=== PATIENT | female | born 1975 | race Caucasian/White ===

== ENCOUNTER 2021-05-06 11:55 | Outpatient (REF) | payer MEDICAID, SELFPAY | END 2021-05-06 11:56 | disposition home or self-care (01) | LOC: HO.LAB 11:55 | PROVIDERS: Visit Provider Internal Medicine | DX: Z20.822 Contact with and (suspected) exposure to COVID-19 (principal) | CPT/HCPCS: C9803; U0003; U0005 ==

== ENCOUNTER 2021-05-13 09:13 | Outpatient (REF) | payer MEDICAID, SELFPAY ==
[2021-05-13 09:53] LABS: COVID-19 Test Negative (Negative)
== END 2021-05-13 09:14 | disposition home or self-care (01) ==
LOC: HO.LAB 09:13
PROVIDERS: Visit Provider Internal Medicine
DX: Z20.822 Contact with and (suspected) exposure to COVID-19 (principal)
CPT/HCPCS: 36415; 87635; C9803

== ENCOUNTER 2021-06-05 12:15 | Outpatient (REF) | payer MEDICAID, SELFPAY | END 2021-06-05 12:16 | disposition home or self-care (01) | LOC: HO.LAB 12:15 | PROVIDERS: Visit Provider Internal Medicine | DX: Z20.822 Contact with and (suspected) exposure to COVID-19 (principal) | CPT/HCPCS: C9803; U0003; U0005 ==

== ENCOUNTER → 2022-04-16 15:30 | Outpatient (BNVA) | payer MEDICAID, SELFPAY | PROVIDERS: PCP Internal Medicine; Visit Provider Surgery | DX: K64.4 Residual hemorrhoidal skin tags (principal); K64.8 Other hemorrhoids | CPT/HCPCS: 46600; 99202 ==

== ENCOUNTER 2022-07-02 11:36 | Emergency (ER) | payer MEDICAID, SELFPAY ==
--- NOTE | ~2022-07-02 | CT_ITS ---
EXAMINATION: CT HEAD WITHOUT CONTRAST CLINICAL INFORMATION: Dizziness, headaches and nausea COMPARISON: None TECHNIQUE: Contiguous axial imaging was performed from the skull base to vertex without intravenous administration of contrast. This CT examination was performed using dose optimization techniques as appropriate, variously including the following: *Automated exposure control *Adjustment of mA and/or kV according to patient size (this includes techniques or standardized protocols for targeted exams where dose is matched to indication/reason for exam; i.e. extremities or head) *Use of iterative reconstruction technique DLP: 638 mGy-cm FINDINGS: There is no acute intra-axial, extra-axial bleed, masses or midline shift. There is no acute infarction in evolution. There is maintained lozano to white matter differentiation. The lateral ventricles are symmetrical and normal. Bone windows reveal no calvarial abnormality. There is no scalp soft tissue abnormality. Bilateral paranasal sinuses and mastoid air cells are well-aerated. CT/CT head/brain wo IV con IMPRESSION: No acute intracranial process seen.
[2022-07-02 11:49] VITALS: BP 103/60; PULSE 75; RESP 16; TEMP 36.4; O2SAT 100; BMI 23.3
--- NOTE | 2022-07-02 11:57 | ED_ITS ---
HPI - General Adult General Chief complaint: Head Injury Stated complaint: possible concussion Time Seen by Provider: 07/02/22 11:53 Source: patient Mode of arrival: ambulatory Limitations: no limitations History of Present Illness HPI narrative: The patient is a 46-year-old female with a PMH prolapsed hemorrhoids, migraines, depression, anxiety, presenting with a complaint of nausea and headache. she reports about 3 weeks ago she hit the right side of her head on a car visor. the patient reports she has been feeling these symptoms for about 2.5 to 3 weeks. she also endorses a 5 lb weight loss, generalized fatigue, generalized malaise, generalized myalgia, tinnitus of the right ear, blurred/ glossy vision, decreased food intake, insomnia nausea episode diarrhea yesterday, photophobia and it is bilateral swollen calfs. patient reports her symptoms have worsened over the past few days, chills and her symptoms worsen at night. Of note the patient is not on any blood thinners. MD complaint: headache and nausea Onset (ago): week(s) (3) Location: head Radiation: non-radiation Severity: moderate Pain Consistency: intermittent Relieving factors: none Exacerbating factors: other (bright lights ) Associated symptoms: fever/chills (chills) and loss of appetite Related Data Home Medications Medication Instructions Recorded Confirmed ascorbic acid (vitamin C) 500 mg 500 mg PO Q OTHER DAY 04/16/22 04/16/22 tablet (Vitamin C) docusate sodium 100 mg capsule 100 mg PO BID 04/16/22 04/16/22 ergocalciferol (vitamin D2) 1,250 1,250 mcg PO QWEEK 04/16/22 04/16/22 mcg (50,000 unit) capsule ferrous gluconate 324 mg (38 mg 324 mg PO Q OTHER DAY 04/16/22 04/16/22 iron) tablet hydroxyzine HCl 25 mg tablet 25 mg PO BID PRN 04/16/22 04/16/22 mirtazapine 15 mg tablet 15 mg PO BEDTIME 04/16/22 04/16/22 Previous Rx's Medication Instructions Recorded ondansetron 4 mg disintegrating 4 mg PO Q8H PRN nausea and 07/02/22 tablet vomiting #10 tabs Allergies Allergy/AdvReac Type Severity Reaction Status Date / Time gluten [GLUTEN] Allergy Unknown UNKNOWN Verified 07/02/22 11:49 wheat [WHEAT] AdvReac Unknown VOMITING Verified 07/02/22 11:49 Wheat Dextrin Allergy Unknown vomiting Uncoded 04/16/22 15:43 wheat AdvReac Unknown vomiting Uncoded 04/16/22 15:43 Review of Systems Review of Systems: Constitutional: No Fever, No Chills, + 5lb weight loss ENT/Mouth: No sore throat, No Rhinorrhea, No Swallowing Difficulty, + tinnitus of right ear Eyes: No Eye Pain, No Swelling, No Redness, + Vision changes Cardiovascular: No Chest Pain, No SOB, No Orthopnea, No Edema, + intermittent chest pressure. Respiratory: No Cough, No Sputum, No Wheezing, No dyspnea Gastrointestinal: + Nausea, No Vomiting, + Diarrhea, No abdominal Pain, No Hematochezia, No Melena Genitourinary: No Dysuria, No Urinary Frequency, No Hematuria Musculoskeletal: No joint pain, + Myalgias, + bilateral calf swelling, Skin: No Skin Lesions, No rash Neuro: No Weakness, No Numbness, + Dizziness, + Headache Heme/Lymph: No Bruising, No Lymphadenopathy Yes all other systems are reviewed and are negative [facility] Past Medical History Medical History (Updated 07/02/22 @ 14:11 by SHER Worthington) Prolapsed hemorrhoids Surgical History No pertinent past surgical history Family History Family History Brother Throat cancer Maternal Grandfather Cancer Social History Social History Alcohol intake: current Alcohol intake frequency: holidays/special occasions only Patient Tobacco Use Status: Current someday Tobacco user Advance Directives: No Advance Directives Information Provided: Yes Physical Exam ED Vital Signs: Vital Signs - 24 hr 07/02/22 11:49 07/02/22 13:07 Temperature 97.6 F 98.5 F Pulse Rate 75 72 Respiratory Rate 16 18 Blood Pressure 103/60 94/60 Pulse Oximetry 100 99 Oxygen Delivery Method Room Air Room Air BMI result Body Mass Index 23.3 Appearance: Alert. Oriented X3. No acute distress. Eyes: Pupils equal, round and reactive to light. ENT: Pharynx normal. moist mucous membranes. TM visualized landmarks noted no erythema no signs of infection Neck: Normal inspection. Neck supple. CVS: Normal heart rate and rhythm. Pulses normal. Respiratory: No respiratory distress. Breath sounds normal. Abdomen: Soft and nontender. Skin: Skin warm and dry. Normal skin color. Normal skin turgor. No rashes. Extremities: No lower extremity edema. no calf tenderness to palpation, - homans sign, no palpable cord. Neuro: Oriented X 3. No motor deficit. No sensory deficit. -heel to young, - finger to nose, - weakness, Normal cerebral alternating movements. - [place] test. No pronator drift. Steady gait. CN II-VII intact. Course Course Course Narrative: 46-year-old female with a PMH prolapsed hemorrhoids, migraines, depression, anxiety, presenting with a complaint of nausea and headache, With multiple comp laints. Patient reports headache vision changes tinnitus of the right ear chest pressure insomnia anorexia, nausea, 1 episode of diarrhea yesterday, photophobia. symptoms worsened at night. patient reports 3 weeks ago she hit her head on a car visor. Doubt acute traumatic injury Physical exam: unremarkable - neuro exam intact, no sinus infection, TM and landmarks visualized. Plan: - Labs: CBC, BMP, ESR, CPK, CRP, liver panel - CT of head to rule out stroke - Lyme, influenza, COVID - EKG Reevaluation(s) Reevaluation #1: Labs unremarkable. CT head is normal. Patient is under lot of stress. She is not sleeping well. She would like a work note for the next 2 days. She will follow-up with her primary care doctor. At this time she is stable for discharge home with rest and follow-up with her PCP. Patient agrees with plan. Medical Decision Making Lab Data Result diagrams: 07/02/22 12:40 07/02/22 12:40 Labs: Lab Results 07/02/22 07/02/22 07/02/22 Range/Units 12:40 12:40 12:40 WBC 6.4 (4.8-10.8) X10*3/uL RBC 3.71 L (4.20-5.50) X10*6/uL Hgb 11.7 L (12.0-16.0) g/dl Hct 35.0 L (37.0-47.0) % MCV 94.3 (80.0-98.0) fL MCH 31.5 (27.0-33.0) pg MCHC 33.4 (31.0-35.0) g/dl RDW 13.2 (11.0-16.0) % Plt Count 238 (160-400) X10*3/uL MPV 10.1 (9.4-12.3) fL Immature Gran % (Auto) 0.3 (0.0-0.4) % Neut % (Auto) 52.0 (45-73) % Lymph % (Auto) 39.2 (20-40) % [place] % (Auto) 7.6 (2-11) % Eos % (Auto) 0.3 (0-4) % Baso % (Auto) 0.6 (0-2) % Lymph # (Auto) 2.5 (1.2-4.9) X10*3/uL [place] # (Auto) 0.5 (0.1-1.2) X10*3/uL Eos # (Auto) 0.0 (0.0-0.4) X10*3/uL Baso # (Auto) 0.0 (0.0-0.2) X10*3/uL Abs Immat Gran (auto) 0.02 (0.00-0.03) X10*3/uL Absolute Neuts (auto) 3.3 (2.0-8.3) x10*3/uL Absolute Nucleated RBC 0.000 (0.0-0.012) X10*3/uL Nucleated RBC % (auto) 0.0 (0.0-0.2) /100WBC ESR 7 (0-20) MM/HR Sodium 142 (135-145) mmol/L Potassium 3.7 (3.3-5.1) mmol/L Chloride 109 H (96-108) mmol/L Carbon Dioxide 23 (22-29) mmol/L Anion Gap 14 (12-20) BUN 12 (9-16) mg/dL Creatinine 0.82 (0.5-1.4) mg/dL Estim Creat Clear Calc 72.4 Estimated GFR > 60 Random Glucose 93 (60-115) mg/dL Calcium 8.5 (8.4-10.2) mg/dL Magnesium 2.2 (1.6-2.6) mg/dL Total Bilirubin 0.2 (0.0-1.0) mg/dL Direct Bilirubin < 0.2 (0.0-0.5) mg/dL AST 12 (5-31) U/L ALT < 6 (0-31) U/L Alkaline Phosphatase 56 (39-117) U/L Total Creatine Kinase 76 (26-140) U/L C-Reactive Protein 0.06 (< or = 0.50) mg/dL Total Protein 6.4 L (6.5-8.0) g/dL Albumin 3.9 (3.5-5.0) g/dL COVID-19 (COLLIN) (Negative) COVID-19 Clin Com Influenza Type A (YIN) (Negative) Influenza Type B (YIN) (Negative) Influenza A & B Note 07/02/22 07/02/22 Range/Units 12:40 12:40 WBC (4.8-10.8) X10*3/uL RBC (4.20-5.50) X10*6/uL Hgb (12.0-16.0) g/dl Hct (37.0-47.0) % MCV (80.0-98.0) fL MCH (27.0-33.0) pg MCHC (31.0-35.0) g/dl RDW (11.0-16.0) % Plt Count (160-400) X10*3/uL MPV (9.4-12.3) fL Immature Gran % (Auto) (0.0-0.4) % Neut % (Auto) (45-73) % Lymph % (Auto) (20-40) % [place] % (Auto) (2-11) % Eos % (Auto) (0-4) % Baso % (Auto) (0-2) % Lymph # (Auto) (1.2-4.9) X10*3/uL [place] # (Auto) (0.1-1.2) X10*3/uL Eos # (Auto) (0.0-0.4) X10*3/uL Baso # (Auto) (0.0-0.2) X10*3/uL Abs Immat Gran (auto) (0.00-0.03) X10*3/uL Absolute Neuts (auto) (2.0-8.3) x10*3/uL Absolute Nucleated RBC (0.0-0.012) X10*3/uL Nucleated RBC % (auto) (0.0-0.2) /100WBC ESR (0-20) MM/HR Sodium (135-145) mmol/L Potassium (3.3-5.1) mmol/L Chloride (96-108) mmol/L Carbon Dioxide (22-29) mmol/L Anion Gap (12-20) BUN (9-16) mg/dL Creatinine (0.5-1.4) mg/dL Estim Creat Clear Calc Estimated GFR Random Glucose (60-115) mg/dL Calcium (8.4-10.2) mg/dL Magnesium (1.6-2.6) mg/dL Total Bilirubin (0.0-1.0) mg/dL Direct Bilirubin (0.0-0.5) mg/dL AST (5-31) U/L ALT (0-31) U/L Alkaline Phosphatase (39-117) U/L Total Creatine Kinase (26-140) U/L C-Reactive Protein (< or = 0.50) mg/dL Total Protein (6.5-8.0) g/dL Albumin (3.5-5.0) g/dL COVID-19 (COLLIN) Negative (Negative) COVID-19 Clin Com See Note Influenza Type A (YIN) Negative (Negative) Influenza Type B (YIN) Negative (Negative) Influenza A & B Note See Note Imaging Data CT scan - head: Radiologist's impression: FINDINGS: There is no acute intra-axial, extra-axial bleed, masses or midline shift. There is no acute infarction in evolution. There is maintained lozano to white matter differentiation. The lateral ventricles are symmetrical and normal. Bone windows reveal no calvarial abnormality. There is no scalp soft tissue abnormality. Bilateral paranasal sinuses and mastoid air cells are well-aerated. CT/CT head/brain wo IV con IMPRESSION: No acute intracranial process seen. ECG Data Attestation: I personally reviewed and interpreted this ECG as follows: Interpretation: Normal sinus rhythm, ventricular rate 66 beats per minute, normal MI interval, normal QTC, no ST segment elevations or depressions. Critical Care Time Critical Care Time Critical Care Time: No Discharge Plan Discharge Clinical Impression: Closed head injury Patient Disposition: Home, Self-Care Instructions: Head Injury (ED) Additional Instructions: Your lab workup today was unremarkable. Your EKG was normal. Your CT scan of your head was normal. Rest no strenuous activity. Avoid screen time. Follow-up with your doctor. If you develop new or worsening symptoms call 911 or come back to the ER for further evaluation. Prescriptions: New ondansetron 4 mg tablet,disintegrating 4 mg PO Q8H PRN (Reason: nausea and vomiting) Qty: 10 0RF No Action ferrous gluconate 324 mg (38 mg iron) tablet 324 mg PO Q OTHER DAY ergocalciferol (vitamin D2) 1,250 mcg (50,000 unit) capsule 1,250 mcg PO QWEEK docusate sodium 100 mg capsule 100 mg PO BID ascorbic acid (vitamin C) [Vitamin C] 500 mg tablet 500 mg PO Q OTHER DAY mirtazapine 15 mg tablet 15 mg PO BEDTIME hydroxyzine HCl 25 mg tablet 25 mg PO BID PRN Referrals: [facility] [Primary Care Provider] - Stand Alone Forms: Work/School Release
--- NOTE | 2022-07-02 12:24 | ECG_ITS ---
Test Reason : CHEST PRESSURE Blood Pressure : / mmHG Vent. Rate : 066 BPM Atrial Rate : 066 BPM P-R Int : 138 ms QRS Dur : 084 ms QT Int : 406 ms P-R-T Axes : 045 064 052 degrees QTc Int : 425 ms Normal sinus rhythm Normal ECG No significant changes seen Referred By: Marla Martino Electronically Signed By:JASON ANDRES MD
[2022-07-02 12:47] LABS: MANUAL DIFF FLAG NO
[2022-07-02 12:48] LABS: Basophils Percent Auto 0.6 % (0-2); Eosinophils Percent Auto 0.3 % (0-4); Hemoglobin 11.7 g/dl (12.0-16.0); Imm Gran Abs Auto 0.02 X10*3/uL (0.00-0.03); Imm Gran Pct Auto 0.3 % (0.0-0.4); Lymphocytes Absolute Auto 2.5 X10*3/uL (1.2-4.9); Lymphocytes Percent Auto 39.2 % (20-40); Mean Corpuscular HGB Conc 33.4 g/dl (31.0-35.0); Mean Corpuscular Hemoglobin 31.5 pg (27.0-33.0); Mean Corpuscular Volume 94.3 fL (80.0-98.0); Mean Platelet Volume 10.1 fL (9.4-12.3); Monocytes Absolute Auto 0.5 X10*3/uL (0.1-1.2); Monocytes Percent Auto 7.6 % (2-11); Neutrophils Absolute Auto 3.3 x10*3/uL (2.0-8.3); Platelet Count 238 X10*3/uL (160-400); Red Blood Count 3.71 X10*6/uL (4.20-5.50); Red Cell Distribution Width 13.2 % (11.0-16.0); White Blood Count 6.4 X10*3/uL (4.8-10.8)
[2022-07-02 13:05] LABS: COVID-19 Test Negative (Negative); IDNOW Serial# 9DB6401D; Influenza A Negative (Negative); Influenza B2 Negative (Negative)
[2022-07-02 13:07] VITALS: BP 94/60; PULSE 72; RESP 18; TEMP 36.9; O2SAT 99
[2022-07-02 13:11] LABS: Alanine Aminotransferase < 6 U/L (0-31); Albumin Level 3.9 g/dL (3.5-5.0); Alkaline Phosphatase 56 U/L (39-117); Anion Gap 14 (12-20); Aspartate Amino Transferase 12 U/L (5-31); Bilirubin Direct < 0.2 mg/dL (0.0-0.5); Bilirubin Total 0.2 mg/dL (0.0-1.0); Blood Urea Nitrogen 12 mg/dL (9-16); C Reactive Protein 0.06 mg/dL (< or = 0.50); Calcium 8.5 mg/dL (8.4-10.2); Carbon Dioxide 23 mmol/L (22-29); Chloride 109 mmol/L (96-108); Creatinine Clr Calc Pharmacy 72.4; Estimated Glomerular Filt Rate > 60; Glucose Random 93 mg/dL (60-115); Magnesium 2.2 mg/dL (1.6-2.6); Potassium 3.7 mmol/L (3.3-5.1); Sodium 142 mmol/L (135-145); Total Protein 6.4 g/dL (6.5-8.0)
[2022-07-02 13:30] LABS: Erythrocyte Sedimentation Rate 7 MM/HR (0-20)
[2022-07-04 17:06] LABS: Lyme Abs Screen <0.90 index
== END 2022-07-02 14:29 | disposition home or self-care (01) ==
PROVIDERS: Physician Assistant; Emergency Provider Emergency Medicine
DX: R51.9 Headache, unspecified (principal); R07.89 Other chest pain; Z20.822 Contact with and (suspected) exposure to COVID-19; Z79.899 Other long term (current) drug therapy
CPT/HCPCS: 36415; 70450; 80048; 80076; 82550; 83735; 85025; 85652; 86140; 86617; 86618; 87502; 87635; 93005; 99284

== ENCOUNTER 2023-06-23 03:33 | Emergency (ER) | payer MEDICAID, SELFPAY ==
--- NOTE | ~2023-06-23 | CT_ITS ---
EXAMINATION: CT ABDOMEN AND PELVIS WITH CONTRAST CLINICAL INFORMATION: Abdominal pain and vomiting COMPARISON: Previous CT of the abdomen and pelvis January 2016 TECHNIQUE: Multidetector volumetric images were obtained from the superior aspect of the liver through the pubic symphysis following administration 85 mL of Omnipaque 350 intravenous contrast. Sagittal and coronal reformatted images were obtained on the technologist's workstation. Oral contrast: Yes This CT examination was performed using dose optimization techniques as appropriate, variously including the following: *Automated exposure control *Adjustment of mA and/or kV according to patient size (this includes techniques or standardized protocols for targeted exams where dose is matched to indication/reason for exam; i.e. extremities or head) *Use of iterative reconstruction technique DLP: 396 mGy-cm FINDINGS: Exam is limited due to motion artifact. LUNG BASES: The visualized lung bases are unremarkable. LIVER, GALLBLADDER, AND BILIARY TREE: The liver is normal in size, shape, and attenuation. No focal hepatic lesion or biliary ductal dilatation is present. The gallbladder is unremarkable with no evidence of radiopaque gallstones, gallbladder wall thickening, or obvious pericholecystic inflammatory changes. PANCREAS: Unremarkable. SPLEEN: Unremarkable. ADRENAL GLANDS: Unremarkable. KIDNEYS AND URETERS: The kidneys are normal in size, shape, and attenuation. No hydronephrosis, hydroureter, or calculi seen. No perinephric stranding. BLADDER: Unremarkable. GASTROINTESTINAL TRACT: The small and large bowel are unremarkable. The appendix is is not seen. No inflammatory changes in the right lower quadrant. No ascites. No free air. ABDOMINAL WALL: No significant hernia is appreciated. LYMPH NODES: Normal. VASCULAR: Unremarkable. PELVIC VISCERA: Bilateral surgical clips in the pelvis, question from tubal ligation. Lobulated contour to the uterus probably representing fibroids. Largest measures 2.3 x 3 cm exophytic to the anterior uterine fundus. Uterus and adnexa are otherwise unremarkable. OSSEOUS STRUCTURES: Unremarkable. CT/CT abdomen pelvis w IV con IMPRESSION: Limited exam due to motion artifact. No acute findings. Lobulated contour of the uterus probably representing fibroids. Fleischner guidelines were followed.
[2023-06-23 03:38] VITALS: BP 118/82; BP 128/58; PULSE 75; PULSE 90; RESP 18; TEMP 36.8; O2SAT 100; BMI 23.2
[2023-06-23 04:02] LABS: Basophils Percent Auto 0.2 % (0-2); Eosinophils Percent Auto 0.5 % (0-4); Hematocrit 37.1 % (37.0-47.0); Hemoglobin 12.6 g/dl (12.0-16.0); Imm Gran Abs Auto 0.01 X10*3/uL (0.00-0.03); Imm Gran Pct Auto 0.1 % (0.0-0.4); Lymphocytes Absolute Auto 2.1 X10*3/uL (1.2-4.9); Lymphocytes Percent Auto 25.8 % (20-40); MANUAL DIFF FLAG NO; Mean Corpuscular Hemoglobin 31.5 pg (27.0-33.0); Mean Corpuscular Volume 92.8 fL (80.0-98.0); Mean Platelet Volume 9.8 fL (9.4-12.3); Monocytes Absolute Auto 0.6 X10*3/uL (0.1-1.2); Monocytes Percent Auto 7.1 % (2-11); Neutrophils Absolute Auto 5.3 x10*3/uL (2.0-8.3); Neutrophils Percent Auto 66.3 % (45-73); Platelet Count 299 X10*3/uL (160-400); Red Cell Distribution Width 13.2 % (11.0-16.0)
[2023-06-23 04:21] LABS: Alanine Aminotransferase 10 U/L (0-31); Albumin Level 4.4 g/dL (3.5-5.0); Alkaline Phosphatase 58 U/L (39-117); Anion Gap 15 (12-20); Aspartate Amino Transferase 18 U/L (5-31); Bilirubin Total 0.5 mg/dL (0.0-1.0); Blood Urea Nitrogen 14 mg/dL (9-16); Calcium 9.5 mg/dL (8.4-10.2); Carbon Dioxide 20 mmol/L (22-29); Chloride 110 mmol/L (96-108); Creatinine Clr Calc Pharmacy 70.5; Estimated Glomerular Filt Rate > 60; Glucose Random 100 mg/dL (60-115); Sodium 141 mmol/L (135-145); Total Protein 7.5 g/dL (6.5-8.0)
[2023-06-23] MEDS: ondansetron HCL 4 MG/2 ML VIAL IVPUSH (04:22)
--- NOTE | 2023-06-23 05:10 | MHC.EDTECH ---
This tech attempted to get patients vitals, patient refused due to pain and stated I don't want anything done until I get medication commercial crabber overheard this conversation.
[2023-06-23 05:25] VITALS: BP 123/55; PULSE 104; RESP 15; O2SAT 98
[2023-06-23] MEDS: Ketorolac Tromethamine 15 MG/ML VIAL IVPUSH (05:25)
[2023-06-23] MEDS: 0.9 % Sodium Chloride 1,000 ML 999 ML IV (05:26)
[2023-06-23] MEDS: Famotidine/PF 20 MG/2 ML VIAL IVPUSH (05:30)
--- NOTE | 2023-06-23 05:53 | ED_ITS ---
HPI - Abdominal Pain General Chief Complaint: Abdominal Pain Stated Complaint: nausea and vomiting upper abd pain Time Seen by Provider: 06/23/23 05:07 Source: patient and EMS Mode of arrival: EMS Limitations: no limitations History of Present Illness HPI narrative: Patient presents with abdominal pain, nausea vomiting. Symptoms started within the last 24 hours. Describes symptoms as severe. The pain is epigastric in nature. Sharp and burning. There is no clear relieving or exacerbating features. She denies any diarrhea constipation. She has had no fevers or chills. The vomitus has been nonbilious and nonbloody. The pain that she is experiencing currently is a 10/10. Does not radiate. Patient denies any symptoms like this previously. She denies any sick contacts. Related Data Home Medications Medication Instructions Recorded Confirmed ascorbic acid (vitamin C) 500 mg 500 mg PO Q OTHER DAY 04/16/22 07/09/22 tablet (Vitamin C) docusate sodium 100 mg capsule 100 mg PO BID 04/16/22 07/09/22 ergocalciferol (vitamin D2) 1,250 1,250 mcg PO QWEEK 04/16/22 07/09/22 mcg (50,000 unit) capsule ferrous gluconate 324 mg (38 mg 324 mg PO Q OTHER DAY 04/16/22 07/09/22 iron) tablet hydroxyzine HCl 25 mg tablet 25 mg PO BID PRN Anxiety 04/16/22 07/09/22 mirtazapine 15 mg tablet 15 mg PO BEDTIME 04/16/22 07/09/22 Previous Rx's Medication Instructions Recorded ondansetron 4 mg disintegrating 4 mg PO Q8H PRN nausea and 07/02/22 tablet vomiting #10 tabs dicyclomine 20 mg tablet 20 mg PO BID #20 tabs 06/23/23 dicyclomine 20 mg tablet 20 mg PO BID PRN abdominal pain 06/23/23 #14 tabs ondansetron 4 mg disintegrating 4 mg PO Q8H PRN nausea and 06/23/23 tablet vomiting #10 tabs Allergies Allergy/AdvReac Type Severity Reaction Status Date / Time gluten [GLUTEN] Allergy Intermediate Vomiting Verified 06/23/23 03:41 wheat [WHEAT] AdvReac Intermediate Vomiting Verified 06/23/23 03:41 Review of Systems Review of Systems CONSTITUTIONAL: Denies weight loss, fever and chills. HEENT: Denies changes in vision and hearing. RESPIRATORY: Denies SOB and cough. CV: Denies palpitations no CP. GI: + abdominal pain, nausea, vomiting - diarrhea. : Denies dysuria and urinary frequency. MSK: Denies myalgia and joint pain. SKIN: Denies rash and pruritus. NEUROLOGICAL: Denies headache and syncope. PSYCHIATRIC: Denies recent changes in mood. Denies anxiety and depression. All other ROS are negative unless in HPI PMFSH Past Medical History Medical History History of COVID-19 Prolapsed hemorrhoids Surgical History Hx of tubal ligation Family History Family History Brother Throat cancer Maternal Grandfather Cancer Social History Social History Alcohol intake: current Alcohol intake frequency: holidays/special occasions only Patient Tobacco Use Status: Current someday Tobacco user Smoked in Last 30 Days: Yes Use of substances other than those prescribed or required for medical reasons: Yes Substance Use Type: Marijuana Advance Directives: No Advance Directives Information Provided: Yes Physical Exam ED Vital Signs: Vital Signs - 24 hr 06/23/23 03:38 06/23/23 05:25 Temperature 98.2 F Pulse Rate 90 104 H Respiratory Rate 18 15 Blood Pressure 128/58 L 123/55 L Pulse Oximetry 100 98 Oxygen Delivery Method Room Air Room Air BMI result Body Mass Index 23.2 GEN: Well developed, + acute distress, alert, oriented HEENT: Normocephalic, atraumatic, normal external ears, nose appears normal, no oropharyngeal edema or exudates Eyes: Normal to appearance Neck: Supple, no lymphadenopathy Respiratory: Talks in complete sentences, no respiratory distress, clear to auscultation bilaterally Cardiovascular: Regular rate and rhythm, no murmurs rubs or gallops Abdomen: Soft, epigastric tenderness, nondistended, no guarding, no rebound, negative Gudino sign, negative McBurney's point tenderness Back: No CVA tenderness Extremities: No clubbing cyanosis or edema Neurologic: No focal neurologic deficits, cranial nerves 2-12 intact, strength is 5/5 bilaterally Skin: No rash Course Course Course Narrative: 47-year-old female presents with severe upper abdominal pain. Examination revealed upper abdominal tenderness. Patient has had a Zofran, Phenergan, GI cocktail, Toradol, Ativan. She is still having significant amount of discomfort. Her exam reveals tenderness without been no rebound or guarding. Lab work does not show any significant acute abnormalities. However, patient continues have significant complaints. At this time, the patient warrants imaging studies make sure there is no significant acute pathology ongoing. I have ordered a CT scan. Patient will be signed out to the oncoming provider to evaluate pending results. Medical Decision Making Medical Decision Making [facility] Narrative: Differential diagnosis includes: Abdominal exam without peritoneal signs. No evidence of acute abdomen at this time. Well appearing. Low suspicion for acute hepatobiliary disease (includng acute cholecystitis), acute pancreatitis, PUD (including perforation), acute infectious processes (pneumonia, hepatitis, pyelonephritis), acute appendicitis, vascular catastrophe, bowel obstruction or viscus perforation. Presentation not consistent with other acute, emergent causes of abdominal pain at this time. Plan: labs, UA, pain control, serial reassessment Differential Diagnosis Differential Diagnoses: The differential diagnosis associated with the presentation includes (see above) Admission/Observation Consideration of admission/observation: Escalation of care including admission/observation considered Lab Data [facility] Lab Attestation statement: I reviewed the patient's lab results. 06/23/23 03:57 06/23/23 03:57 Labs: Lab Results 06/23/23 06/23/23 Range/Units 03:57 05:33 WBC 8.0 (4.8-10.8) X10*3/uL RBC 4.00 L (4.20-5.50) X10*6/uL Hgb 12.6 (12.0-16.0) g/dl Hct 37.1 (37.0-47.0) % MCV 92.8 (80.0-98.0) fL MCH 31.5 (27.0-33.0) pg MCHC 34.0 (31.0-35.0) g/dl RDW 13.2 (11.0-16.0) % Plt Count 299 D (160-400) X10*3/uL MPV 9.8 (9.4-12.3) fL Immature Gran % (Auto) 0.1 (0.0-0.4) % Neut % (Auto) 66.3 (45-73) % Lymph % (Auto) 25.8 (20-40) % [place] % (Auto) 7.1 (2-11) % Eos % (Auto) 0.5 (0-4) % Baso % (Auto) 0.2 (0-2) % Lymph # (Auto) 2.1 (1.2-4.9) X10*3/uL [place] # (Auto) 0.6 (0.1-1.2) X10*3/uL Eos # (Auto) 0.0 (0.0-0.4) X10*3/uL Baso # (Auto) 0.0 (0.0-0.2) X10*3/uL Abs Immat Gran (auto) 0.01 (0.00-0.03) X10*3/uL Absolute Neuts (auto) 5.3 (2.0-8.3) x10*3/uL Absolute Nucleated RBC 0.000 (0.0-0.012) X10*3/uL Nucleated RBC % (auto) 0.0 (0.0-0.2) /100WBC Sodium 141 (135-145) mmol/L Potassium 4.0 (3.3-5.1) mmol/L Chloride 110 H (96-108) mmol/L Carbon Dioxide 20 L (22-29) mmol/L Anion Gap 15 (12-20) BUN 14 (9-16) mg/dL Creatinine 0.87 (0.5-1.4) mg/dL Estim Creat Clear Calc 70.5 Estimated GFR > 60 Random Glucose 100 (60-115) mg/dL Calcium 9.5 D (8.4-10.2) mg/dL Total Bilirubin 0.5 (0.0-1.0) mg/dL AST 18 (5-31) U/L ALT 10 (0-31) U/L Alkaline Phosphatase 58 (39-117) U/L Total Protein 7.5 (6.5-8.0) g/dL Albumin 4.4 (3.5-5.0) g/dL Urine Color Yellow Urine Appearance Hazy Urine pH 7.0 (5.0-9.0) Ur Specific Export 1.020 (1.005-1.025) Urine Protein 30 (1+) H (Neg-Trace) mg/dL Urine Glucose (UA) Negative (Negative) mg/dL Urine Ketones 15 (Negative) mg/dL Urine Blood Negative (Negative) Urine Nitrite Negative (Negative) Ur Leukocyte Esterase Negative (Negative) Urine Opiates Screen Not Detected (Not Detect) Urine Fentanyl Screen Not Detected (Not Detect) Ur Barbiturates Screen Not Detected (Not Detect) Ur Phencyclidine Scrn Not Detected (Not Detect) Ur Amphetamines Screen Not Detected (Not Detect) U Benzodiazepines Scrn Not Detected (Not Detect) Urine Cocaine Screen POSITIVE H (Not Detect) U Marijuana (THC) Screen POSITIVE H (Not Detect) Independent Historian Clinical information obtained from an independent historian. History obtained from or confirmed by: EMS External Record Review External record reviewed: Inpatient record and Office record Prescription Management I considered prescription management with: Pain Medication Medications Administered Discontinued Medications Generic Name Dose Route Start Last Admin Trade Name Freq PRN Reason Stop Dose Admin Al Hydroxide/Mg Hydroxide 30 ml 06/23/23 06:18 06/23/23 06:33 Magnesium Hydrox/Alum Hydrox 30 Ml Oral.Susp PO 06/23/23 06:19 30 ml ONCE ONE Administration Belladonna Alkaloids/Phenobarbital 10 ml 06/23/23 06:18 06/23/23 06:32 Phenobarb/Hyoscy/Atropine/Scop 10 Ml Elixir PO 06/23/23 06:19 10 ml ONCE ONE Administration Famotidine 20 mg 06/23/23 05:12 06/23/23 05:30 Famotidine/Pf 20 Mg/2 Ml Vial IVPUSH 06/23/23 05:13 20 mg ONCE ONE Administration Sodium Chloride 1,000 mls @ 999 mls/hr 06/23/23 05:15 06/23/23 05:26 Ns IV 06/23/23 06:15 999 mls/hr .Q1H1M JUAN JOSE Administration Promethazine HCl 12.5 mg/ 50.5 mls @ 202 mls/hr 06/23/23 05:12 06/23/23 05:24 Sodium Chloride IV 06/23/23 05:13 202 mls/hr ONCE ONE Administration Ketorolac Tromethamine 15 mg 06/23/23 05:12 06/23/23 05:25 Ketorolac Tromethamine 15 Mg/Ml Vial IVPUSH 06/23/23 05:13 15 mg ONCE ONE Administration Lidocaine HCl 15 ml 06/23/23 06:18 06/23/23 06:33 Lidocaine Hcl Viscous 2 % 15 Ml Solution MUCOUS MEM 06/23/23 06:19 15 ml ONCE ONE Administration Lorazepam 0.5 mg 06/23/23 06:18 06/23/23 06:33 Lorazepam 2 Mg/Ml Vial IVPUSH 06/23/23 06:19 0.5 mg ONCE ONE Administration Ondansetron HCl 4 mg 06/23/23 04:19 06/23/23 04:22 Ondansetron Hcl 4 Mg/2 Ml Vial IVPUSH 06/23/23 04:20 4 mg ONCE ONE Administration Discharge Plan Discharge Clinical Impression: Abdominal pain Patient Disposition: Still a Patient Instructions: Acute Nausea and Vomiting (ED), Abdominal Pain (ED) Prescriptions: New ondansetron 4 mg tablet,disintegrating 4 mg PO Q8H PRN (Reason: nausea and vomiting) Qty: 10 0RF dicyclomine 20 mg tablet 20 mg PO BID Qty: 20 0RF dicyclomine 20 mg tablet 20 mg PO BID PRN (Reason: abdominal pain) Qty: 14 0RF No Action ondansetron 4 mg tablet,disintegrating 4 mg PO Q8H PRN (Reason: nausea and vomiting) Qty: 10 0RF ferrous gluconate 324 mg (38 mg iron) tablet 324 mg PO Q OTHER DAY ergocalciferol (vitamin D2) 1,250 mcg (50,000 unit) capsule 1,250 mcg PO QWEEK docusate sodium 100 mg capsule 100 mg PO BID ascorbic acid (vitamin C) [Vitamin C] 500 mg tablet 500 mg PO Q OTHER DAY mirtazapine 15 mg tablet 15 mg PO BEDTIME hydroxyzine HCl 25 mg tablet 25 mg PO BID PRN (Reason: Anxiety) Referrals: Jennifer Garay MD [Primary Care Provider] - 2 days
[2023-06-23] MEDS: PHENobarb/Hyoscy/Atropine/Scop 10 ML ELIXIR PO (06:32)
[2023-06-23] MEDS: Lidocaine HCl Viscous 2 % 15 ML SOLUTION MUCOUS MEM (06:33)
[2023-06-23] MEDS: Magnesium Hydrox/Alum Hydrox 30 ML ORAL.SUSP PO (06:33)
[2023-06-23] MEDS: LORazepam 2 MG/ML VIAL 0.5 MG IVPUSH (06:33)
[2023-06-23 06:38] LABS: Amphetamine Screen Urine Not Detected (Not Detect); Barbiturates, Urine Not Detected (Not Detect); Benzodiazepines Screen Urine Not Detected (Not Detect); Cannabinoid Screen Urine POSITIVE (Not Detect); Cocaine Screen Urine POSITIVE (Not Detect); Fentanyl, urine Not Detected (Not Detect); Opiate Screen Urine Not Detected (Not Detect); Phencyclidine Screen Urine Not Detected (Not Detect)
[2023-06-23 06:47] LABS: Appearance Urine Hazy; Color Urine Yellow; Glucose Urine UA Negative (Negative); Leukocyte Esterase Urine Negative (Negative); Nitrite Urine Negative (Negative); UMIC TRIGGER UACC YES; Urine Blood Negative (Negative); Urine Ketones 15 mg/dL (Negative); Urine Protein 30 (1+) mg/dL (Neg-Trace)
[2023-06-23 07:31] LABS: Bacteria Urine 4+ (None Seen); Hyaline Casts Urine 0-2 /LPF (0-2); WBC Urine 0-5 /HPF (0-5)
[2023-06-23 07:37] LABS: UPreg QC Valid YES; Urine Pregnancy NEGATIVE (NEGATIVE)
[2023-06-23] MEDS: droPERidol 5 MG/2 ML VIAL 1.25 MG IVPUSH (08:25)
[2023-06-23 08:37] LABS: Lipase 13 U/L (8-78)
== END 2023-06-23 10:32 | disposition home or self-care (01) ==
PROVIDERS: Emergency Medicine; Emergency Provider Emergency Medicine; PCP Internal Medicine
DX: R10.10 Upper abdominal pain, unspecified (principal); R11.2 Nausea with vomiting, unspecified; F17.200 Nicotine dependence, unspecified, uncomplicated; F12.90 Cannabis use, unspecified, uncomplicated; Z79.899 Other long term (current) drug therapy
CPT/HCPCS: 36415; 74177; 80053; 80307; 81001; 81025; 83690; 85025; 96365; 96366; 96375; 99284; 99285; J1790; J1885; J2060; J2405; J2550

== ENCOUNTER 2024-11-21 12:52 | Emergency (ER) | payer MEDICAID, SELFPAY ==
--- NOTE | 2024-11-21 12:56 | ED.GENADULT ---
HPI - General Adult General Chief complaint: Extremity Problem Stated complaint: R arm numb Time Seen by Provider: 11/21/24 13:00 Source: patient Mode of arrival: ambulatory Limitations: no limitations History of Present Illness ED Provider: Eunice Vazquez PA-C HPI narrative: Patient is a 49 year old assigned female at with a history of right sided carpal tunnel presenting to the emergency department today with worsening carpel tunnel symptoms of the right hand / wrist. Patient states that she was told before she has right sided carpal tunnel for which she has a velcro splint. Patient states that over the last few days she has had more right sided wrist and hand pain causing intermittent right hand numbness / tingling. 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 Patient states that she is currently uninsured but working with someone to get that resolved. Patient denies any dizziness, lightheadedness, abdominal pain, nausea, vomiting, fever, chills, blurry vision, double vision, loss of vision, chest pain, difficulty breathing, shortness of breath, back pain, night sweats, pain with urination, increased urinary frequency, increased urinary urgency, blood in her urine or stool, syncope or a near syncopal episode, bowel incontinence, bladder incontinence, or any other complaints at this time. Onset (ago): week(s) Location: right and upper extremity (hand/wrist) Relieving factors: none Exacerbating factors: movement Associated symptoms: denies other symptoms Treatments prior to arrival: splint (velcro) Related Data Home Medications ?Medication ?Instructions ?Recorded ?Confirmed ascorbic acid (vitamin C) 500 mg 500 mg PO Q OTHER DAY 04/16/22 07/09/22 tablet (Vitamin C) docusate sodium 100 mg capsule 100 mg PO BID 04/16/22 07/09/22 ergocalciferol (vitamin D2) 1,250 1,250 mcg PO QWEEK 04/16/22 07/09/22 mcg (50,000 unit) capsule ferrous gluconate 324 mg (38 mg 324 mg PO Q OTHER DAY 04/16/22 07/09/22 iron) tablet hydroxyzine HCl 25 mg tablet 25 mg PO BID PRN Anxiety 04/16/22 07/09/22 mirtazapine 15 mg tablet 15 mg PO BEDTIME 04/16/22 07/09/22 Previous Rx's ?Medication ?Instructions ?Recorded ondansetron 4 mg disintegrating 4 mg PO Q8H PRN nausea and 07/02/22 tablet vomiting #10 tabs dicyclomine 20 mg tablet 20 mg PO BID #20 tabs 06/23/23 dicyclomine 20 mg tablet 20 mg PO BID PRN abdominal pain 06/23/23 #14 tabs ondansetron 4 mg disintegrating 4 mg PO Q8H PRN nausea and 06/23/23 tablet vomiting #10 tabs prednisone 20 mg tablet See Rx Instructions .Route 11/21/24 .COMPLEX 12 days #26 tabs Allergies Allergy/AdvReac Type Severity Reaction Status Date / Time gluten [GLUTEN] Allergy Intermediate Vomiting Verified 11/21/24 12:59 wheat [WHEAT] AdvReac Intermediate Vomiting Verified 11/21/24 12:59 Review of Systems Constitutional: Constitutional: Reports no additional constitutional complaints, Denies chills, Denies fever(s) and Denies night sweats Eyes: Eyes: Reports no additional eye complaints, Denies blurry vision, Denies change in vision, Denies diplopia, Denies eye discharge, Denies loss of vision and Denies eye pain ENT: Denies dizziness Cardiovascular: Cardiovascular: Reports no additional cardiovascular complaints, Denies chest pain, Denies lightheadedness, Denies Loss of Consciousness and Denies dyspnea Respiratory: Respiratory: Reports no additional respiratory complaints and Denies dyspnea Gastrointestinal: Gastrointestinal: Reports no additional gastrointestinal complaints, Denies abdominal pain, Denies melena, Denies hematochezia, Denies change in bowel habits and Denies change in stool character Genitourinary: Genitourinary: Denies hematuria, Denies urinary frequency, Denies dysuria, Denies urinary incontinence, Denies urinary hesitancy and Denies urinary urgency Musculoskeletal: Musculoskeletal: Reports no additional musculoskeletal complaints Comments: intermittent right wrist pain with hand numbness / tingling Neurologic: Denies dizziness and Denies loss of vision Psychiatric: Psychiatric: Reports no additional psychiatric complaints Endocrine: Endocrine: Reports no additional endocrine complaints Hematologic/Lymphatic: Hematologic/Lymphatic: Reports no additional hematologic/lymphatic complaints Allergic/Immunologic: Allergic/Immunologic: Reports no additional allergic/immunologic complaints PMFSH Past Medical History Attestation statement: The following information was validated with the patient. Source: old records reviewed and nursing notes reviewed Medical History History of COVID-19 Prolapsed hemorrhoids Surgical History Hx of tubal ligation Family History Family History Brother Throat cancer Maternal Grandfather Cancer Social History Social History Alcohol intake: current Alcohol intake frequency: holidays/special occasions only Patient Tobacco Use Status: Current someday Tobacco user Substance Use Type: Marijuana Advance Directives: No Advance Directives Information Provided: No Physical Exam ED Vital Signs: BMI result Body Mass Index 25.9 Const General: cooperative, no acute distress, alert and awake Nutritional Appearance: well nourished Orientation/consciousness: patient oriented x3 Limitations: no limitations HENMT Head: Yes normal to inspection and Yes atraumatic Ears: hearing grossly normal bilaterally and external ears normal General nose exam: Normal external nose present, no nasal discharge noted and no epistaxis Face and sinus: Yes normal facial exam, No abrasion and No laceration Mouth: Normal oral and palatal mucosa present, no drooling and no muffled voice Eyes General: appearance normal, both eyes and all related structures Periorbital: periorbital findings normal Eyelids: Yes eyelids normal Conjunctivae: conjunctivae normal Pupils: Equal, round and reactive pupils present EOM: EOMs intact bilaterally Neck Neck: Yes normal visual inspection, Yes full ROM and Yes no lymphadenopathy Chest Chest palpation & inspection: normal inspection of the chest Resp Effort & Inspection: normal respiratory effort and able to speak in complete sentences GI Inspection: Yes normal to inspection Neuro General: patient oriented x3, moves all extremities and CN's II-XI intact bilaterally Cranial nerves: Yes Equal, round and reactive pupils present Cognition (Neuro): normal cognition Extrem General: Yes normal to inspection, Yes full ROM and Yes capillary refill normal Psych Appearance: grossly normal Mental Status: mental status grossly normal Affect: normal affect Attitude: cooperative Thought process: Normal thought process present Thought content: Normal thought content present Insight: Good insight present (Psych) Medical Decision Making Medical Decision Making MDM Narrative: Patient is a 49 year old assigned female at with a history of right sided carpal tunnel presenting to the emergency department today with worsening carpel tunnel symptoms of the right hand / wrist. Patient's physical exam was unremarkable. Patient's clinical presentation is most consistent with acute on chronic right sided carpal tunnel. I explained my physical exam findings as well as all test results to the patient. I answered all questions asked by the patient. I stressed the importance of the patient taking her medication as directed (either prescribed or as the over the counter packaging recommends) and wearing her splint as previously directed. I stressed the importance of the patient following up with her primary care provider and an orthopedic provider. I stressed the importance of the patient returning to the emergency department immediately if her symptoms were to worsen or if she were to develop any dizziness, shortness of breath, difficulty breathing, chest pain, blurry vision, loss of vision, nausea, vomiting, abdominal pain, fever, chills, back pain, or any other complaints. Patient verbalized agreement and understanding with this treatment plan and discharge. Differential Diagnosis Differential Diagnoses: The differential diagnosis associated with the presentation includes Acute on chronic carpal tunnel Admission/Observation Consideration of admission/observation: Escalation of care including admission/observation considered Patient would have been admitted to the hospital had her clinical presentation warranted hospital admission. Tests considered The following testing was considered but not selected: I considered obtaining an x-ray of the right hand/wrist however, the patient's current clinical presentation did not warrant this. I discussed this with the patient who verbalized understanding and agreement. Discharge Plan Discharge Clinical Impression: Carpal tunnel syndrome Patient Disposition: Home, Self-Care Instructions: Carpal Tunnel Surgery (DC) Additional Instructions: Follow up with your primary care provider and an orthopedic provider. Wear your brace. Return to the emergency department immediately if your symptoms worsen or if you develop any dizziness, shortness of breath, difficulty breathing, chest pain, blurry vision, loss of vision, nausea, vomiting, abdominal pain, fever, chills, back pain, or any other complaints. Prescriptions: New prednisone 20 mg tablet See Rx Instructions .ROUTE .COMPLEX 12 Days Qty: 26 0RF Rx Instructions: 20 mg orally, Take 3 tablets for 5 days THEN; Take 2 tablets for 4 days THEN; Take 1 tablet for 3 days No Action ondansetron 4 mg tablet,disintegrating 4 mg PO Q8H PRN (Reason: nausea and vomiting) Qty: 10 0RF ondansetron 4 mg tablet,disintegrating 4 mg PO Q8H PRN (Reason: nausea and vomiting) Qty: 10 0RF dicyclomine 20 mg tablet 20 mg PO BID Qty: 20 0RF dicyclomine 20 mg tablet 20 mg PO BID PRN (Reason: abdominal pain) Qty: 14 0RF ferrous gluconate 324 mg (38 mg iron) tablet 324 mg PO Q OTHER DAY ergocalciferol (vitamin D2) 1,250 mcg (50,000 unit) capsule 1,250 mcg PO QWEEK docusate sodium 100 mg capsule 100 mg PO BID ascorbic acid (vitamin C) [Vitamin C] 500 mg tablet 500 mg PO Q OTHER DAY mirtazapine 15 mg tablet 15 mg PO BEDTIME hydroxyzine HCl 25 mg tablet 25 mg PO BID PRN (Reason: Anxiety) [place]: [facility] [Provider Group] (Call to establish and follow up with an orthopedic provider. ) Jennifer Garay MD [Primary Care Provider] - Stand Alone Forms: Work/School Release Interventions: ED Discharge Assessment Last Done: 11/21/24 13:12 Discharge Date/Time: 11/21/24 13:12 Print Language: Kyrgyz
[2024-11-21 12:58] VITALS: BP 163/79; PULSE 80; RESP 18; TEMP 36.4; O2SAT 100; BMI 25.9
[2024-11-21 13:12] VITALS: BP 163/79; PULSE 80; RESP 18; TEMP 36.4; O2SAT 100
--- OUTSIDE RECORDS SUMMARY | 2024-11-21 15:20 | XMS_ITS | Clinical Summary ---
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 Name Role Phone Unavailable Primary Care Provider Unavailabl e Social History Tobacco Use Types Packs/Day Years Used Date Smoking Tobacco: Never Assessed Comments Unknown Sex and Gender Information Value Date Recorded Sex Assigned at Not on file Legal Sex Female 3:32 PM EST Gender Identity Not on file Sexual Orientation Not on file Plan of Treatment Health Maintenance Due Date Last Done Comments Breast Cancer Screening 1977 DTaP,Tdap,and Td Vaccines (1 - Tdap) 1996 Hepatitis B Vaccines (1 of 3 - 19+ 3-dose series) 1996 Cervical Cancer Screening: P ap Smear 1998 Colorectal Cancer Screening: Colonoscopy 08/20/2022 Depression Screening 08/20/2022 HIV Screening 08/20/2022 Hepatitis C Screening 08/20/2022 Social Influencers of Health Screening 08/20/2022 COVID-19 Vaccine ( - 2023-2 5 season) 2024 Influenza Vaccine (#1) 2024 HIB Vaccines Aged Out No longer eligi ble based on patient's age to complete this topic HPV Vaccines Aged Out No longer eligi ble based on patient's age to complete this topic Hepatitis A Vaccines Aged Out No long er eligible based on patient's age to complete this topic IPV Vaccines Aged Out No longer eligi ble based on patient's age to complete this topic MMR Vaccines Aged Out No longer eligi ble based on patient's age to complete this topic Meningococcal ACWY Vaccine Aged Out N o longer eligible based on patient's age to complete this topic Meningococcal B Vacine Aged Out No lo nger eligible based on patient's age to complete this topic Pneumococcal Vaccine: Pediat rics (0 to 5 Years) and At-Risk Patients (6 to 64 Years) Aged Out No longer eligible b ased on patient's age to complete this topic RSV Immunization Patients Un altagracia 20 months Aged Out No longer eligible b ased on patient's age to complete this topic Varicella Vaccines Aged Out No longer eligible based on patient's age to complete this topic
--- OUTSIDE RECORDS SUMMARY | 2024-11-21 15:20 | XMS_ITS | Clinical Summary ---
Author Organization [employer] Address [address] [facility] [address] [place] [address] Care Team Providers Care Wafer Polishing Worker Name Role Phone Jennifer Garay MD Primary Care Provide r Allergies Active Allergy Reactions Criticality Noted Date Comments Wheat 01/06/2024 Medications * This document contains information received from the source organization and may not represent a complete record from that organization. hydrOXYzine pamoate (Vistaril) 25 MG capsule Take 1 capsule (25 mg) by mouth every 6 (six) hours if needed for itching for up to 10 days. 40 capsule 04/05/2024 Active LORazepam (Ativan) 0.5 MG tablet Take 1 tablet (0.5 mg) by mouth every 8 (eight) hours if needed for anxiety for up to 7 days. 21 tablet 04/05/2024 Active Active Problems Problem Noted Date Diagnosed Date EMMA (generalized anxiety disorder) 01/28/2024 Trigger middle finger of right hand 01/21/2024 Assessment & Plan (01/21/2024 10:48 AM EDT): Referral to hand specialist Hordeolum externum of right upper eyelid Assessment & Plan (01/08/2024 2:05 PM EDT): -provided reassurance -encouraged frequent warm compresses -tx with erythromycin ointment -advised contact C if sx do not resolve Right wrist pain 12/15/2023 Assessment & Plan (01/21/2024 10:48 AM EDT): Nerve study to be done Continue using wrist brace Assessment & Plan (12/15/2023 11:39 AM EDT): Likely CTS I will prescribe a wrist brace and order nerve conduction test Colon cancer screening 12/15/2023 Encounter for screening mamm ogram for malignant neoplasm of breast 12/15/2023 Cigarette smoker 01/20/2023 Hemorrhoids 01/20/2023 Irritable bowel syndrome 01/20/2023 Severe episode of recurrent major depressive disorder, without psychotic features 01/20/2023 Assessment & Plan (01/29/2024 9:02 AM EDT): PROGRESS NOTE: ID: Delia is a 48 y.o. straight-identified cis-female with previous documented hx of Depression and Anxiety. MH services including OP Psychotherapy psychopharmacology who presents for Anxiety and Depression. Hx of trauma in adulthood, Hx of self harm. During IBH Consult Delia presenting with depressed mood, loss of interests/pleasure , changes in sleep difficulty falling asleep and difficulty staying asleep , change in appetite or weight reduce appetite, psychomotor agitation, trouble concentrating, fatigue/loss of energy, hopelessness, worthlessness and excessive worry/anxiety, difficulty controlling worry, restless/keyed up/On edge, easily fatigued, difficulty concentrating/Mind going blank , irritability, muscle tension, and sleep disturbance difficulty falling asleep and difficulty staying asleep ; for a period of 18+ mo, for all symptoms in the context of son incarceration, mother passed on 2020, feeling alone, lack of social support. . PLAN: New/Additional Services needed Off-site services for Behavioral Health Integration Plan External OP therapy referral and OP psychiatry Referral Patient Self Plan Patient to utilize skills provided in intervention , Patient to reach out to [facility] team as needed, Patient to engage in OP therapy , and Patient to reach out to [facility] as needed Assessment & Plan (01/21/2024 10:49 AM EDT): Do not miss appointment with therapist hopefully she will be put on waiting list for psychiatrist as well Counseling done today Assessment & Plan (12/15/2023 11:39 AM EDT): Counseling done [facility] referral Encounters Date Type Department Care Team Description 10/14/2024 Travel 10/04/2024 Patient Outreach [facility] [address] [place] [address] Jennifer Garay MD Pre-visit Planning (Unable to complete SDOH screening currently at work ) from Last 3 Months Immunizations Name Administration Dates Next Due DTaP 01/21/2013 Social History Tobacco Use Types Packs/Day Years Used Date Smoking Tobacco: Former Cigarettes Passive Smoke Exposure: Past Smokeless Tobacco: Never Tobacco Cessation:Counseling Given: Not Answered Alcohol Use Standard Drinks/Week Comments Never 0 (1 standard drink = 0.6 oz pur e alcohol) Depression Answer Date Recorded Patient Health Questionnaire-9 Score 20 01/28/2024 Patient Health Questionnaire-9 Score 20 01/28/2024 Last PHQ-9: Questionnaire Data Not on file 0 01/28/2024 Housing Stability Answer Date Recorded What is your housing situation today? I have donna hernandez 01/21/[address] you li ve. Do you have problems with any of the following? None of the above 01/21/2024 Food Insecurity Answer Date Recorded Within the past 12 months, y ou worried that your food would run out before you got money to buy more: Never True 01/21/2024 Within the past 12 months,th e food you bought just didn't last and you didn't have enough money to get more: Never True 10/2023 Transportation Answer Date Recorded In the past 12 months, has l ack of transportation kept you from medical appts, meetings, work or from getting things needed for daily living? No 01/21/2024 Utilities Answer Date Recorded In the past 12 months, has t he [employer], gas, oil or water company threatened to shut off services in your home? No 01/21/2024 Depression Answer Date Recorded Patient Health Questionnaire-2 Score 6 01/28/2024 Comments No Sex and Gender Information Value Date Recorded Sex Assigned at Female 07/21/2022 10:14 AM EDT Legal Sex Female 10:14 AM EDT Gender Identity Female 07/21/2022 10:14 AM EDT Sexual Orientation Straight 07/21/2022 10 :14 AM EDT Last Filed Vital Signs Vital Sign Reading Time Taken Comments Blood Pressure 105/57 04/05/2024 12:59 PM EDT Pulse 72 04/05/2024 12:59 PM EDT Temperature 36.6 ??C (97.9 ??F) 04/05/2024 12:59 PM E DT Respiratory Rate 17 04/05/2024 12:59 PM EDT Oxygen Saturation 99% 04/05/2024 12:59 PM EDT Inhaled Oxygen Concentration - - Weight 63.8 kg (140 lb 9.6 oz) 04/05/2024 12:59 PM EDT Height 160 cm (5' 3 ) 01/21/2024 9:55 AM EDT Body Mass Index 24.91 01/21/2024 9:55 AM EDT Plan of Treatment Health Maintenance Due Date Last Done Comments CT Colonography 1977 Colonoscopy 1977 Colorectal Cancer Screening 1977 Dental Oral Exam 1977 Dental Prophylaxis 1977 Dental X-Ray: Full Mouth 1977 FIT DNA/Cologuard 1977 FIT 1977 FOBT 1977 Sigmoidoscopy 1977 Alcohol/Substance Use Screening 1989 Family Planning (PISQ) 1992 Hepatitis B Vaccines (1 of 3 - 19+ 3-dose series) 1996 Pap Smear 1998 Cervical Cancer Screening 2007 HPV/Cotest 2007 Mammogram 2017 DTaP/Tdap/Td Vaccines (2 - Tdap) 01/21/2023 01/21/2013 COVID-19 Vaccine (4 - 2023-2 5 season) 2024 09/30/2021, 04/22/2021, 03/17/2021 Influenza Vaccine (#1) 2024 Depression Monitoring (PHQ-9) 07/30/2024, 01/28/2024 Dental X-Ray: Bitewings 08/06/2024 08/05/2023 SDOH Screening 01/20/2025 01/21/2024 Depression Screening 01/27/2025 01/28/2024, 01/28/2024 Tobacco Screening 04/05/2025 04/05/2024 Zoster Vaccines (1 of 2) 2027 RSV Patients and Patients Aged 60 years or older (1 - 1-dose 75+ series) 2052 HIV Screening Completed 02/28/2022 Hepatitis C Screening Completed 02/28/2022 HIB Vaccines Aged Out No longer eligi [...] patient's age to complete this topic Meningococcal Vaccine Aged Out No jackelyn clement eligible based on patient's age to complete this topic Pneumococcal Vaccine: Pediatrics (0 to 5 Years) and At-Risk Patients (6 to 49) Years) Aged Out No longer eligible b ased on patient's age to complete this topic RSV under 20 months Aged Out No longe r eligible based on patient's age to complete this topic Rotavirus Vaccines Aged Out No longer eligible based on patient's age to complete this topic Procedures Procedure Name Priority Date/Time Associated Diagnosis Comments BITEWING - SINGLE RADIOGRAPHIC IMAGE Routine 08/05/2023 11:30 AM EST ETIENNE HISTORICAL HEPATITIS C AB W/REFL TO HCV RNA, QN, PCR Routine 02/28/2022 10:12 AM EDT HIV 1/2 ANTIGEN/ANTIBODY, FOURTH GENERATION W/RFL Routine 02/28/2022 10:12 AM EDT from Last 3 Months or Most Recently Relevant to Health Maintenance Results * HEPATITIS C AB W/REFL TO HCV RNA, QN, PCR (02/28/2022 10:12 AM EDT) HEPATITIS C ANTIBODY NON-REACT DHRUV NON-REACT DHRUV [facility] INDEX 0.16 <1.00 [facility] Comment: ?? HCV antibody was non-reactive. There is no laboratory ?? evidence of HCV infection. ?? In most cases, no further action is required. However, if recent HCV exposure is suspected, a test for HCV RNA (test code 36021) is suggested. ?? For additional information please refer to http://[employer]/faq/MWR21y9 (This link is being provided for informational/ educational purposes only.) ?? 02/28/2022 10:1 2 AM EDT us Jennifer Jason MD HISTORICAL/NON ORDERA BLE LABS Final Result Performing Organization Address [facility] Co de Phone Number [facility] [address] [place] [address], * HIV 1/2 ANTIGEN/ANTIBODY,FOURTH GENERATION W/RFL (02/28/2022 10:12 AM EDT) HIV-1/2 ANTIGEN AND ANTIBODIES, 4TH GENERATION W/ REFLEX NON-REACT DHRUV NON-REACT DHRUV [facility] Comment: HIV-1 antigen and HIV-1/HIV-2 antibodies were not detected. There is no laboratory evidence of HIV infection. ?? PLEASE NOTE: This information has been disclosed to you from records whose confidentiality may be protected by state law. ??If your state requires such protection, then the state law prohibits you from making any further disclosure of the information without the specific written consent of the person to whom it pertains, or as otherwise permitted by law. A general authorization for the release of medical or other information is NOT sufficient for this purpose. ? For additional information please refer to http://education.[employer]/faq/BAH212 (This link is being provided for informational/ educational purposes only.) ? The performance of this assay has not been clinically validated in patients less than 2 years old. ?? 02/28/2022 10:1 2 AM EDT us Jennifer Jason MD LAB BLOOD ORDERABLES Final Result Performing Organization Address City/[facility] Co de Phone Number [facility] [address] [place] [address], from Last 3 Months or Most Recently Relevant to Health Maintenance Care Teams Wafer Polishing Worker Relationship Specialty Start Date End Date Jennifer Garay MD [address] [place] [address] PCP - General Family Medicine 02/28/22
== END 2024-11-21 13:12 | disposition home or self-care (01) ==
PROVIDERS: Emergency Provider Emergency Medicine; PCP Internal Medicine
DX: G56.01 Carpal tunnel syndrome, right upper limb (principal)
CPT/HCPCS: 99282; 99283

== ENCOUNTER 2025-02-21 09:51 | Outpatient (REF) | payer OTHER, SELFPAY ==
--- NOTE | 2025-02-21 09:54 | EMG_ITS ---
Right median and ulnar motor and sensory studies were performed. Right radial sensory study was performed. Right median and lateral antecubital brachial sensory studies were performed and paraspinal muscles were tested with a needle. IMPRESSION: Mild to moderate right median neuropathy across carpal tunnel. MD CHASTITY Matthews/ASH / [id number]
--- OUTSIDE RECORDS SUMMARY | 2025-02-21 11:04 | XMS_ITS | Clinical Summary ---
Author Organization [employer] Address [address] [facility] [address] [place] [address] Care Team Providers Care Manager Business Banking Name Role Phone Jennifer Garay MD Primary [...] to 7 days. 21 tablet 04/05/2024 Active gabapentin (Neurontin) 300 MG capsule Take 1 capsule by mouth at bedtime 30 capsule 2 01/24/2025 Active Active Problems Problem Noted Date Diagnosed Date EMMA (generalized anxiety disorder) 01/28/2024 Trigger middle finger of right hand 01/21/2024 Assessment & Plan (01/21/2024 10:48 AM EDT): Referral to hand specialist Hordeolum externum of right upper eyelid 024 Assessment & Plan (01/08/2024 2:05 PM EDT): -provided reassurance -encouraged frequent warm compresses -tx with erythromycin ointment -advised contact [facility] if sx do not resolve Right wrist pain 12/15/2023 Assessment & Plan (01/25/2025 6:26 AM EDT): - Likely carpal tunnel syndrome. Continue using brace. Will send gabapentin. Pt is unable to use Ibuprofen. - Evaluate with nerve conduction test. Patient requests it to be done at [facility]. - Will refer to ortho. Patient lives in [place] and works in [place], and prefers specialists closer to her home or work. Patient is willing to go to any specialist who can see her sooner. Assessment & Plan (01/21/2024 10:48 AM EDT): [...] previous documented hx of Depression and Anxiety. services including OP Psychotherapy psychopharmacology who presents [...] intervention , Patient to reach out to [facility] team as needed, Patient to engage in OP therapy , and Patient to reach out to [facility] as needed Assessment & Plan (01/21/2024 10:49 AM EDT): Do not miss appointment with therapist hopefully she will be put on waiting list for psychiatrist as well Counseling done today Assessment & Plan (12/15/2023 11:39 AM EDT): Counseling done [facility] referral Encounters Date Type Department Care Team Description 02/09/2025 Patient Outreach [address] [address] Jennifer Garay MD Care Coordination ([facility] Miladis Giordano telephone call outreach) 02/09/2025 Patient Outreach [address] [address] Jennifer Garay MD Pre-visit Planning (SDOH Screening is positive and Tobacco screening is negative) 01/24/2025 1:45 PM EDT Office Visit [address] [address] Ana Burgos MD Right wrist pain (Primary Dx) 01/24/2025 Travel from Last 3 Months Immunizations Immunization Administration Dates Next Due DTaP 01/21/2013 Social [...] housing situation today? I have donna hernandez 02/09/[address] you li ve. Do you have problems with any of the following? None of the above 02/09/2025 Food Insecurity Answer Date Recorded Within the past 12 months, y ou worried that your food would run out before you got money to buy more: Sometimes True 2024 Within the past 12 months,th e food you bought just didn't last and you didn't have enough money to get more: Sometimes True 02/09/2025 Transportation Answer Date Recorded In the past 12 months, has l ack of transportation kept you from medical appts, meetings, work or from getting things needed for daily living? No 02/09/2025 Utilities Answer Date Recorded In the past 12 months, has t he electric, gas, oil or water company threatened to shut off services in your home? Yes 02/09/2025 Depression Answer Date Recorded Patient Health Questionnaire-2 Score 6 01/28/2024 Internet Access Answer Date Recorded Internet Access Q1 Yes 02/09/2025 Internet Access Q2 Not on file 02/09/2025 Comments No Sex and Gender Information Value Date Recorded Sex Assigned at Female 07/21/2022 10:14 AM EDT Legal Sex Female 10:14 AM EDT Gender Identity Female 07/21/2022 10:14 AM EDT Sexual Orientation Straight 07/21/2022 10 :14 AM EDT Last Filed Vital Signs Vital Sign Reading Time Taken Comments Blood Pressure 115/69 01/24/2025 1:30 PM EDT Pulse 79 01/24/2025 1:30 PM EDT Temperature 36.4 ??C (97.5 ??F) 01/24/2025 1:30 PM ED T Respiratory Rate 14 01/24/2025 1:30 PM EDT Oxygen Saturation 97% 01/24/2025 1:30 PM EDT Inhaled Oxygen Concentration - - Weight 70.1 kg (154 lb 9.6 oz) 01/24/2025 1:30 P M EDT Height 160 cm (5' 3 ) 01/24/2025 1:30 PM EDT Body Mass Index 27.39 01/24/2025 1:30 PM EDT Plan of Treatment Upcoming Encounters Date Type Department Care Team (Late st Contact Info) Description 03/30/2025 2:45 PM EDT Office Visit [facility] [address] [place], [place] [phone] Jennifer Garay MD [address] [place], [place] [phone] Health Maintenance Due Date Last Done Comments CT Colonography 1977 Colonoscopy 1977 Colorectal Cancer Screening 1977 Dental Oral Exam 1977 Dental Prophylaxis 1977 Dental X-Ray: Full Mouth 1977 FIT DNA/Cologuard 1977 FIT 1977 FOBT 1977 Sigmoidoscopy 1977 Disability Screening 1977 Alcohol/Substance Use Screening 1989 Family Planning (PISQ) 1992 Hepatitis B Vaccines (1 of 3 - 19+ 3-dose series) 1996 Pap Smear 1998 Cervical Cancer Screening 2007 HPV/Cotest 2007 Mammogram 2017 DTaP/Tdap/Td Vaccines (2 - Tdap) 01/21/2023 01/21/2013 COVID-19 Vaccine (4 - 2023-2 5 season) 2024 09/30/2021, 04/22/2021, 03/17/2021 Depression Monitoring 07/30/2024 01/28/2024 , 01/28/2024 Dental X-Ray: Bitewings 08/06/2024 08/05/2023 Influenza Vaccine (Season Ended) 2025 Tobacco Screening 01/24/2026 01/24/2025 SDOH Screening 02/09/2026 02/09/2025 Zoster Vaccines (1 of 2) 2027 RSV [...] age to complete this topic Meningococcal B Vaccine Aged Out No l onger eligible based on patient's age to complete [...] HEPATITIS C ANTIBODY NON-REACT DHRUV NON-REACT DHRUV [facility] INDEX 0.16 <1.00 [facility] Comment: ?? HCV antibody was non-reactive. There is no laboratory ?? evidence of HCV infection. ?? In most cases, no further action is required. However, if recent HCV exposure is suspected, a test for HCV RNA (test code 17883) is suggested. ?? For additional information please refer to http://education.[employer]/faq/PEV30q1 (This link is being provided for informational/ educational purposes only.) ?? 02/28/2022 10:1 2 AM EDT us Jennifer Jason MD HISTORICAL/NON ORDERA BLE LABS Final Result [facility] [address] * HIV 1/2 ANTIGEN/ANTIBODY,FOURTH GENERATION W/RFL (02/28/2022 10:12 AM EDT) HIV-1/2 ANTIGEN AND ANTIBODIES, 4TH GENERATION W/ REFLEX NON-REACT DHRUV NON-REACT DHRUV [facility] Comment: HIV-1 antigen and HIV-1/HIV-2 [...] ? For additional information please refer to http://education.[employer]/faq/LHE200 (This link is being provided for informational/ educational purposes only.) ? The performance of this assay has not been clinically validated in patients less than 2 years old. ?? 02/28/2022 10:1 2 AM EDT Jennifer Jason MD LAB BLOOD ORDERABLES Final Result [facility] [address] from Last 3 Months or Most Recently Relevant to Health Maintenance Insurance Care Teams Manager Business Banking Relationship Specialty Start Date End Date Jennifer Garay MD [address] [place] [id number] PCP - General Family Medicine 02/28/22
== END 2025-02-21 09:52 | disposition home or self-care (01) ==
LOC: HO.NEURO 09:51
PROVIDERS: PCP Internal Medicine; Visit Provider Family Medicine
DX: G56.11 Other lesions of median nerve, right upper limb (principal); M25.531 Pain in right wrist; R20.0 Anesthesia of skin; R20.2 Paresthesia of skin
CPT/HCPCS: 95886; 95910

== ENCOUNTER 2025-03-30 18:17 | Outpatient (REF) | payer OTHER, SELFPAY ==
[2025-03-30 20:18] LABS: Bacterial Vaginosis PCR POSITIVE (Negative); Candida Group PCR DETECTED (Not Detect); Candida glab krusei PCR NOT DETECTED (Not Detect); Trichomonas vaginalis PCR NOT DETECTED (Not Detect)
== END 2025-03-30 18:18 | disposition home or self-care (01) ==
LOC: HO.HHCLNP 18:17
PROVIDERS: Visit Provider Internal Medicine
DX: N89.8 Other specified noninflammatory disorders of vagina (principal)
CPT/HCPCS: 81515

== ENCOUNTER 2025-04-04 16:50 | Outpatient (REF) | payer OTHER, SELFPAY ==
--- OUTSIDE RECORDS SUMMARY | 2025-04-04 09:30 | XMS_ITS | Encounter Summary ---
Author Organization [employer] Address [address] [place] [address] Care Team Providers Care Project Coach Name Role Phone Jennifer Garay MD Primary Care Provide r Reason for Visit * Reason Comments Gynecologic Exam PAP Encounter Details Date Type Department Care Team (Latest Contact Info) Description 04/04/2025 9:30 AM EDT Procedure Visit [facility] [address] [place] [address] Brooke Raphael CNM [address] [place], [place] [id number] Cervical cancer screening (Primary Dx); Screening examination for venereal disease; Abnormal uterine bleeding (AUB); Family history of breast cancer in sister; Foreign body in vagina, initial encounter Social History Tobacco Use Types Packs/Day Years Used Date Smoking Tobacco: Every Day Cigarettes Passive Smoke Exposure: Current Smokeless Tobacco: Never Tobacco Cessation:Ready to Q uit: Not Asked; Counseling Given: Not Answered Alcohol Use Standard Drinks/Week Comments Never 0 (1 standard drink = 0.6 oz pur e alcohol) Depression Answer Date Recorded Patient Health Questionnaire-9 Score 15 03/30/2025 Patient Health Questionnaire-9 Score 15 03/30/2025 Last PHQ-9: Questionnaire Data Not on file 0 03/30/2025 Housing Stability Answer Date Recorded What is [...] Answer Date Recorded Patient Health Questionnaire-2 Score 4 03/30/2025 Internet Access Answer Date Recorded Internet Access Q1 Yes 02/09/2025 Internet Access Q2 Not on file 02/09/2025 Comments No Intention Date Recorded No desire to become (finding) 0 04/04/2025 Sex and Gender Information Value Date Recorded Sex Assigned at Female 07/21/2022 10:14 AM EDT Legal Sex Female 10:14 AM EDT Gender Identity Female 07/21/2022 10:14 AM EDT Sexual Orientation Straight 07/21/2022 10 :14 AM EDT documented as of this encounter Last Filed Vital Signs Vital Sign Reading Time Taken Comments Blood Pressure 112/58 04/04/2025 9:09 AM EDT Pulse 74 04/04/2025 9:09 AM EDT Temperature - - Respiratory Rate 20 04/04/2025 9:09 AM EDT Oxygen Saturation - - Inhaled Oxygen Concentration - - Weight 70.3 kg (155 lb) 04/04/2025 9:09 AM EDT Height 160 cm (5' 3 ) 04/04/2025 9:09 AM EDT Body Mass Index 27.46 04/04/2025 9:09 AM EDT documented in this encounter Progress Notes * Brooke Raphael CNM - 04/04/2025 9:30 AM EDT Subjective Patient ID: Delia Gifford is a 49 y.o. female who presents for pap Has tubal ligation, happy with method. No pap on file. Thinks her last pap was a few years ago, no prior abnormal. No history of STIs. Nursing Home [facility] partner, not safety concerns. Notes persistent vaginal odor and prolonged light bleeding after being treated for bacterial vaginosis, on last day of metronidazole. Monthly menses x 4d prior to January. Typically bleeds x 3-4d, cramping responds to Midol. Since January, notes frequent light bleeding. Would like breast and pelvic exam today. Review of Systems Genitourinary: Positive for menstrual problem and vaginal bleeding. Negative for dyspareunia, dysuria, frequency, genital sores, hematuria, pelvic pain, urgency, vaginal discharge and vaginal pain. No abnormal pap, no breast pain, no breast mass, no nipple discharge Objective BP 112/58 (BP Location: Right arm, Patient Position: Sitting, BP Cuff Size: Adult) Pulse 74 Resp 20 Ht 5' 3 (1.6 m) Wt 155 lb (70.3 kg) LMP 01/30/2025 (Approximate) Comment: has had her period for 2 month BMI 27.46 kg/m?? Physical Exam Appointment Setter present: declines asphalt coater. Constitutional: Appearance: Normal appearance. Chest: Breasts: Right: Normal. No swelling, bleeding, inverted nipple, mass, nipple discharge, skin change or tenderness. Left: Normal. No swelling, bleeding, inverted nipple, mass, nipple discharge, skin change or tenderness. Genitourinary: General: Normal vulva. Labia: Right: No rash, tenderness, lesion or injury. Left: No rash, tenderness, lesion or injury. Vagina: Foreign body present. No signs of injury. No vaginal discharge, erythema, tenderness, bleeding or lesions. Cervix: No cervical motion tenderness, discharge, friability, lesion, erythema, cervical bleeding or eversion. Uterus: Normal. Not enlarged and not tender. Adnexa: Right adnexa normal and left adnexa normal. Right: No mass, tenderness or fullness. Left: No mass, tenderness or fullness. Rectum: External hemorrhoid present. Comments: Retained tampon noted in posterior fornix. Removed intact with forceps. Large anal hemorrhoids with some ulceration. Has GI referral in process. Lymphadenopathy: Upper Body: Right upper body: No supraclavicular or axillary adenopathy. Left upper body: No supraclavicular or axillary adenopathy. Neurological: Mental Status: She is alert. Psychiatric: Mood and Affect: Mood normal. Behavior: Behavior normal. Assessment/Plan Diagnoses and all orders for this visit: Cervical cancer screening - Pap Smear Cotest today. Repeat 5 y if normal/HPV negative. Will contact with results. Screening examination for venereal disease - STI testing add on (NG, CT, Trich) Pap based STI testing sent as precaution. Will contact with results. Abnormal uterine bleeding (AUB) Retained tampon removed today. Will observe bleeding pattern. If AUB persists, will order ultrasound. Family history of breast cancer in sister Mammogram pending. Will calculate Tyrer Cuzick and order MRI if indicated. Not in contact with sister, unable to find out if she had genetics testing. Will offer when we call with pap results. Reportchanges in breast exam. Foreign body in vagina, initial encounter Tampon removed intact. Benign exam today otherwise. Reassured, symptoms should resolve on their own. Report fever, chills, rash or other flu like symptoms. documented in this encounter Plan of Treatment Upcoming Encounters Date Type Department Care Team (Late st Contact Info) Description 04/27/2025 2:30 PM EDT Clinical Support [facility] [address] [place] [address] Scheduled Orders Name Type Priority Associated Diagnoses Orde r Schedule Pap Smear Pathology and Cytology Routine Cervical cancer screening Ordered: 04/04/2025 STI testing add on (NG, CT, Trich) Pathology and Cytology Routine Screening examination for venereal disease Ordered: 04/04/2025 documented as of this encounter Visit Diagnoses Diagnosis Cervical cancer screening- Primary Screening for malignant neoplasm of the cervix Screening examination for venereal disease Abnormal uterine bleeding (AUB) Family history of breast cancer in sister Family history of malignant neoplasm of breast Foreign body in vagina, initial encounter documented in this encounter Additional Health Concerns Assessment Noted Time PHQ-9 Depression Total Score: 15 025 2:31 PM EDT documented as of this encounter Care Teams Project Coach Relationship Specialty Start Date End Date Jennifer Garay MD [address] [place] [address] PCP - General Family Medicine 02/28/22 documented as of this encounter
--- OUTSIDE RECORDS SUMMARY | 2025-04-04 16:54 | XMS_ITS | Encounter Summary ---
Author Organization [facility] Address [address] [place] [address] Care Team Providers Care Speech Clinician Name Role Phone Jennifer Garay MD Primary Care Provide r Reason for Visit * Reason Onset Date Comments information needed 03/31/2025 Encounter Details Date Type Department Care Team ([facility] st Contact Info) Description 03/31/2025 Telephone Gastroenterology - [place] [address] [facility] [address] [facility] [address] [place] [id number] Lesley Good MD [address] [facility] [address] [place] [address] information needed Social History Tobacco Use Types Packs/Day Years Used Date Smoking Tobacco: Never Assessed Comments Unknown Sex and Gender Information Value Date Recorded Sex Assigned at Not on file Legal Sex Female 3:32 PM EST Gender Identity Not on file Sexual Orientation Not on file documented as of this encounter Progress Notes * Radha De Los Santos - 03/31/2025 10:58 AM EDT Records received from [facility] for colonoscopy, missing allergy list, faxed & placed in missing folder. documented in this encounter Plan of Treatment Not on file documented as of this encounter Visit Diagnoses Not on filedocumented in this encounter Care Teams Speech Clinician Relationship Specialty Start Date End Date Jennifer Garay MD [address] [phone] PCP - General Internal Medicine 03/31/25 documented as of this encounter
--- OUTSIDE RECORDS SUMMARY | 2025-04-04 16:54 | XMS_ITS | Patient Health Record ---
Author Organization [facility] Address [address] [place] [address] Care Team Providers Care Application Helper Name Role Phone KRYSTAL EVANS CNM Primary Care Provider Rajan Olivia Jr Unavailable Reason For Referral No Information Plan Of Treatment No Information Insurance Providers Payer Name Payer Address Payer Phone Subscriber Number Group Number Insured Name Patient Relationship to Insured Coverage Start Date Coverage End Date MEDICAID OF [facility] [address] [place] [address] [id number] FIGUEROA CUEVAS Self - patient is the insured
[2025-04-06 20:08] LABS: Trichomonas (NAAT) NOT DETECTED (NOT DETECTED)
[2025-04-06 21:58] LABS: C. trachomatis RNA TMA NOT DETECTED (NOT DETECTED); N. gonorrhoeae RNA TMA NOT DETECTED (NOT DETECTED)
== END 2025-04-04 16:51 | disposition home or self-care (01) ==
LOC: HO.HHCLNP 16:50
PROVIDERS: Visit Provider Advanced Practice Midwife
DX: Z12.4 Encounter for screening for malignant neoplasm of cervix (principal); Z11.3 Encounter for screening for infections with a predominantly sexual mode of transmission
CPT/HCPCS: 87491; 87591; 87626; 87661; 88175

== ENCOUNTER 2025-04-26 14:23 | Outpatient (AMB) | payer OTHER, SELFPAY ==
[2025-04-26 14:26] VITALS: BMI 26.4
--- NOTE | 2025-04-26 14:26 | A.OFFVIS_ITS ---
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 States she is having numbness and tingling that is comes on randomly through out the day and worsens at night time. She is also having pain in her middle finger, it is catching and locking. She has tried using braces and splints with no improvements. EMG done. IMPRESSION: Mild to moderate right median neuropathy across carpal tunnel. 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 She complains of numbness and tingling in her right hand. It is mostly the thumb index and middle fingers. It feels like it is constant and it does wake her up at night. She also complains of occasional locking and catching of her right middle finger. It is mostly when she is doing braiding or certain other activities. She says it is not painful and does not really bother her too much [facility] Medical History History of COVID-19 Prolapsed hemorrhoids Surgical History Hx of tubal ligation Family History Brother Throat cancer Maternal Grandfather Cancer Social History Alcohol intake: current Alcohol intake frequency: holidays/special occasions only Patient Tobacco Use Status: Current someday Tobacco user Substance Use Type: Marijuana Physical Exam Vital Signs: BMI result Body Mass Index 26.4 Const General: cooperative, healthy appearing and no acute distress Orientation/consciousness: oriented to person and oriented to place HEENT Head: Yes normocephalic and Yes atraumatic Eyes EOM: EOMs intact bilaterally Resp Effort & Inspection: normal respiratory effort and able to speak in complete sentences Cardio Jugular venous distension: no JVD Skin General skin exam: turgor normal Rashes: no rashes Neuro General: oriented to person and oriented to place Extrem Other: Evaluation of right Upper Extremity: Neuro: Median, ulnar, radial nerves motor and sensory intact except for some decreased subjective sensation in the median nerve distribution. No intrinsic or thenar wasting. Good finger cross an APB muscle belly firing. Vascular: Cap refill brisk. ROM: Can bring fingers closed to a fist and back out to full extension. No locking or catching of any of the digits today in clinic. The A1 juan antonio of the middle finger is not tender to palpation. Smooth and painless wrist ROM Skin: No lacerations or abrasions. General: No eccymosis. No erythema or evidence of infection. EMG nerve conduction study: Impression: Mild to moderate right median neuropathy across the carpal tunnel Performed by Dr. Dietrich on 02/23/2025 Psych Appearance: grossly normal Affect: normal affect Attitude: cooperative Assessment & Plan Assessment & Plan (1) Carpal tunnel syndrome of right wrist: Code(s): G56.01 - Carpal tunnel syndrome, right upper limb Category: Medical (2) Trigger finger, right middle finger: Code(s): M65.331 - Trigger finger, right middle finger Category: Medical Plan Assessment and plan: 1. Right carpal tunnel syndrome, mild to moderate She had some persistent numbness in clinic, with worse symptoms at night 2. Right middle finger trigger finger She says it is not painful, is only occasional and does not really bother her too much I educated her about these conditions We discussed operative and non operative treatment options. I am recommending surgery for the right carpal tunnel syndrome. We did discuss operative treatment for the trigger finger, but she says it really isn't bothering her right now. The risks and benefits of operative treatment were discussed with the patient and the patient wishes to proceed with surgery. These risks include, but are not limited to risk of damage to blood vessels, nerves, tendons, infection, recurrence, incomplete relief of preoperative symptoms, persistent pain, possible need for further surgery and the risks associated with regional blocks and anesthesia. The plan is to take the patient to the operating room sometime in the next few weeks for the following procedures: 1. Right carpal tunnel release under local 2. [ ] All of the preoperative paperwork including the consent was filled out today. All the patient's questions were answered. The patient understands that they will be contacted by our clinical product manager soon to schedule this procedure She denies having diabetes or being on anticoagulants. Coding Level of Care Code New Pt Level 4 (28292) Diagnoses Carpal tunnel syndrome of right wrist G56.01 Trigger finger, right middle finger M65.331
--- OUTSIDE RECORDS SUMMARY | 2025-04-26 14:51 | XMS_ITS | Patient Health Record ---
Author Organization [facility] Address [address] [place] [address] Care Team Providers Care Healthcare Administration Internship Name Role Phone KRYSTAL EVANS CNM Primary Care Provider Rajan Olivia Jr Unavailable Reason For Referral No Information Plan Of Treatment No Information Insurance Providers Payer Name Payer Address Payer Phone Subscriber Number Group Number Insured Name Patient Relationship to Insured Coverage Start Date Coverage End Date MEDICAID OF [facility] [address] [place] [phone] [id number] FIGUEROA CUEVAS Self - patient is the insured
--- OUTSIDE RECORDS SUMMARY | 2025-04-26 14:51 | XMS_ITS | Clinical Summary ---
Author Organization [employer] Address [address] [facility] [address] [place] [address] Care Team Providers Care Aircraft Dispatcher Name Role Phone Jennifer Garay MD Primary [...] for up to 10 days. 40 capsule 4 Active Additional Information Patient not taking.Reported on 04/04/2025 LORazepam (Ativan) 0.5 MG tablet Take 1 tablet (0.5 mg) by mouth every 8 (eight) hours if needed for anxiety for up to 7 days. 21 tablet 4 Active Additional Information Patient not taking.Reported on 04/04/2025 gabapentin (Neurontin) 300 MG capsule Take 1 capsule by mouth at bedtime 30 capsule 2 5 Active fluconazole (Diflucan) 150 MG tabletIndicatio ns:Vaginal discharge Take 1 tablet then after 72 hours take another tablet 2 tablet 5 Active metroNIDAZOLE (Flagyl) 500 MG tabletIndicatio ns:Vaginal discharge Take 1 tablet (500 mg) by mouth 2 times daily for 7 days. 14 tablet 5 04/06/20 25 Active Problems Problem Noted Date Diagnosed Date Encounter for preventive care 03/30/2025 Assessment & Plan (03/30/2025 3:44 PM EDT): See HPI Vaginal discharge 03/30/2025 EMMA (generalized anxiety disorder) 01/28/2024 Assessment & Plan (03/30/2025 3:44 PM EDT): Counseling done today I will refer patient to N Patient declines for now medications she will consider them on next appointment Trigger middle finger of right hand 01/21/2024 Assessment & Plan (01/21/2024 10:48 AM EDT): Referral to hand specialist Hordeolum externum of right upper eyelid Assessment & Plan (01/08/2024 2:05 PM EDT): -provided reassurance -encouraged frequent warm compresses -tx with erythromycin ointment -advised contact [facility] if sx do not resolve Right wrist pain 12/15/2023 Assessment & Plan (01/25/2025 6:26 AM EDT): - Likely carpal tunnel syndrome. Continue using brace. Will send gabapentin. Pt is unable to use Ibuprofen. - Evaluate with nerve conduction test. Patient requests it to be done at [facility]. - Will refer to ortho. Patient lives in [place] and works in [place], and prefers specialists closer to her home [...] neoplasm of breast 12/15/2023 Cigarette smoker 01/20/2023 Assessment & Plan (03/30/2025 3:44 PM EDT): Counseling done patient not ready to quit Hemorrhoids 01/20/2023 Irritable bowel syndrome 01/20/2023 Severe episode of recurrent major depressive disorder, without psychotic features 01/20/2023 Assessment & Plan (03/30/2025 3:44 PM EDT): Counseling done, [facility] referral done Medications will be considered on next appointments Assessment & Plan (01/29/2024 9:02 AM EDT): [...] intervention , Patient to reach out to [facility] team as needed, Patient to engage in OP therapy , and Patient to reach out to [facility] as needed Assessment & Plan (01/21/2024 10:49 AM EDT): Do not miss appointment with therapist hopefully she will be put on waiting list for psychiatrist as well Counseling done today Assessment & Plan (12/15/2023 11:39 AM EDT): Counseling done [facility] referral Encounters * This document contains information received from the source organization and may not represent a complete record from that organization. Date Type Department Care Team Description 04/10/2025 Results Follow-Up [facility] [address] [place] [address] Jose Cruz Martinez CNM Pap Smear 04/04/2025 9:30 AM EDT Procedure Visit [address] [place] [address] Jose Cruz Martinez CNM Cervical cancer screening (Primary Dx); Screening examination for venereal disease; Abnormal uterine bleeding (AUB); Family history of breast cancer in sister; Foreign body in vagina, initial encounter 04/04/2025 Orders Only [address] [address] Jose Cruz Martinez CNM 04/04/2025 Travel 04/03/[address] [address] Jose Cruz Martinez CNM chart prep 03/31/2025 Results Follow-Up [address] [address] Jennifer Garay MD Bacterial Vaginosis 03/30/2025 2:45 PM EDT Office Visit [address] [address] Jennifer Garay MD Cigarette smoker (Primary Dx); Encounter for preventive care; Vaginal discharge; EMMA (generalized anxiety disorder); Severe episode of recurrent major depressive disorder, without psychotic features (CMS/HCC); Colon cancer screening; Encounter for screening mammogram for malignant neoplasm of breast; Encounter for immunization 03/30/[address] [address] Jennifer Garay MD MAMMO FAX 03/30/2025 Travel 03/29/[address] [address] Jennifer Garay MD Chart prep 03/21/2025 Patient Outreach [address] [address] Jennifer Garay MD Pre-visit Planning ([facility] screening completed on 02/09/25) 02/09/2025 Patient Outreach [address] [address] Jennifer Garay MD Care Coordination ([facility] Miladis Giordano telephone call outreach) 02/09/2025 Patient Outreach [facility] [address] [place] [address] Jennifer Garay MD Pre-visit Planning (SDOH Screening is positive and Tobacco screening is negative) 01/24/2025 1:45 PM EDT Office Visit [facility] [address] [place] [address] Ana Burgos MD Right wrist pain (Primary Dx) 01/24/2025 Travel from Last 3 Months Immunizations Immunization Administration Dates Next Due DTaP 01/21/2013 HepB-CpG 03/30/2025 Tdap 03/30/2025 Family History Medical History Relation Name Comments Breast cancer Sister alive, aged 55 in 2024. Unilateral Colon cancer Neg Hx Ovarian cancer Neg Hx Relation Name Status Comments Sister Social History Tobacco Use Types Packs/Day Years [...] is your housing situation today? I have donnagala hernandez 02/09/[address] you [...] Pulse 74 04/04/2025 9:09 AM EDT Temperature 36.8 C (98.3 F) 03/30/2025 2:24 PM EDT Respiratory Rate 20 04/04/2025 9:09 AM EDT Oxygen Saturation 99% 03/30/2025 2:24 PM EDT Inhaled Oxygen Concentration - - Weight 70.3 kg (155 lb) 04/04/2025 9:09 AM EDT Height 160 cm (5' 3 ) 04/04/2025 9:09 AM EDT Body Mass Index 27.46 04/04/2025 9:09 AM EDT Plan of Treatment Upcoming Encounters Date Type Department Care Team (Late st Contact Info) Description 05/02/2025 3:30 PM EDT Clinical Support [facility] [address] [place] [address] 07/13/2025 9:00 AM EDT Office Visit [facility] [address] [place] [address] Tarka, Audelia, OD [address] [place] [address] Health Maintenance Due Date Last Done Comments CT Colonography 1977 Colonoscopy 1977 Colorectal Cancer Screening 1977 Dental Oral Exam 1977 Dental Prophylaxis 1977 Dental X-Ray: Full Mouth 1977 FIT DNA/Cologuard 1977 FIT 1977 FOBT 1977 Sigmoidoscopy 1977 Pneumococcal Vaccine: Pediatrics (0 to 5 Years) and At-Risk Patients (6 to 49) Years (1 of 2 - PCV) 1996 Mammogram 2017 COVID-19 Vaccine (4 - 2023-2 5 season) 2024 09/30/2021, 04/22/2021, 03/17/2021 Dental X-Ray: Bitewings 08/06/2024 08/05/2023 Hepatitis B Vaccines (2 of 2 - CpG 2-dose series) 04/27/2025 03/30/2025 Influenza Vaccine (#1) 2025 Depression Monitoring 09/30/2025 03/30/2025 , 03/30/2025 SDOH Screening 02/09/2026 02/09/2025 Alcohol/Substance Use Screening 03/30/2026 03/30/2025 Disability Screening 04/04/2026 04/04/2025 Family Planning (PISQ) 04/04/2026 04/04/2025 Tobacco Screening 04/04/2026 04/04/2025 Lipid Panel 02/28/2027 02/28/2022 Zoster Vaccines (1 of 2) 2027 Cervical Cancer Screening 04/04/2030 HPV/Cotest 04/04/2030 04/04/2025 Pap Smear 04/04/2030 04/04/2025 DTaP/Tdap/Td Vaccines (3 - T d or Tdap) 03/30/2035 03/30/2025, 01/21/2013 RSV Patients and Patients Aged 60 years [...] Procedure Name Priority Date/Time Associated Diagnosis Comments CHLAMYDIA/N. GONORRHOEAE AND T. VAGINALIS RNA, QUAL,TMA Routine 04/04/2025 9:48 AM EDT Screening examination for venereal disease PAP SMEAR Routine 04/04/2025 9:48 AM EDT Cervical cancer screening HPV DNA, LOW/HIGH RISK Routine 04/04/2025 9:48 AM EDT BACTERIAL VAGINOSIS PANEL Routine 03/30/2025 3:00 PM EDT Vaginal discharge BITEWING - SINGLE RADIOGRAPHIC IMAGE Routine 08/05/2023 11:30 AM EST ZZZ HISTORICAL HEPATITIS C AB W/REFL TO HCV RNA, QN, PCR Routine 02/28/2022 10:12 AM EDT HIV 1/2 ANTIGEN/ANTIBODY, FOURTH GENERATION W/RFL Routine 02/28/2022 10:12 AM EDT LIPID PANEL, STANDARD Routine 02/28/2022 10:12 AM EDT from Last 3 Months or Most Recently Relevant to Health Maintenance Results * STI testing add on (NG, CT, Trich) (04/04/2025 9:48 AM EDT) Trichomonas (NAAT) NOT DETECTED NOT DETECTED [facility] Comment:The analytical perfo rmance characteristics of thisassay have been determined by [employer] Themodifications have not been cleared or approved bythe FDA. This assay has been validated pursuant to theCLIA regulations and is used for clinical purposes.For additional information, please refer tohttp://education.[employer].Sociall/faq/Trichomonastma(This link is being provided for information/educational purposes only.)THIS TEST WAS PERFORMED AT:[facility] [place] [phone] ARNOLD MD CTNG Ref Lab NOT DETECTED NOT DETECTED [facility] NG Ref Lab NOT DETECTED NOT DETECTED [facility] ThinPrep vial Cervix uteri structure / Unknown 04/04/2025 9:48 AM EDT 04/05/2025 8:04 AM EDT Narrative [facility] - 04/06/2025 9:58 PM EDT Collection Date: [id number] by: NNAMDI Vu: Cervix Jose Cruz Martinez [facility] CYTOLOGY ORDERABLES F inal Result Performing Organization Address City/[facility]/ZIP Co de Phone Number [facility] [address] [place] [phone] * HPV DNA, Low/High Risk (04/04/2025 9:48 AM EDT) HPV High Risk Negative Negative [facility] HPV Genotype 16 Negative Negative [facility] HPV Genotype 18 Negative Negative [facility] Comment:HPV testing performe d at [facility] (CLIA#[id number]), [address] [place] [address].Testing for HPV was performed using the [employer] BENNETT 6800system. The presence of HPV in the female genital tract isassociated with a number of diseases, including cervicalcarcinoma. The HPV DNA high risk pool tests for HPV 31, 33,35, 39, 45, 51, 52, 56, 58, 59, 66 and 68. The testing forHPV 16 and 18 genotypes has also been performed. A positiveresult indicates detection of nucleic acid sequences fromone or more subtypes, whereas a negative result indicatessuch sequences were not detected. 04/04/2025 9:48 AM EDT 04/05/2025 8:04 AM EDT Jose Cruz Martinez [facility] BLOOD ORDERABLES Oliva l Result [facility] [address] [place] [phone] * Pap Smear (04/04/2025 9:48 AM EDT) Swab Cervix uteri structure / Unknown 04/04/2025 9:48 AM EDT 04/05/2025 8:04 AM EDT Lorie [facility] - 04/07/2025 11:33 AM EDT ----- ------- Name: Delia Mays Age/Sex: 49/F : 1975 Unit#: [id number] Attend Dr: JOSE CRUZ MARTINEZ CNM Re04/04/25 Status: DEP [facility] Disch: ----- ------- SPEC : [id number] RECD: 04/05/25 STATUS: IRMA WOLFF NUM: [id number] ADRIAN: 04/04/[address] [facility] DR: JOSE CRUZ MARTINEZ CNM ENTERED: 04/05/25 SP TYPE: Pap Smr OT DR: ORDERED: Pap Smear Interpretation Satisfactory for evaluation. Negative for intraepithelial lesion or malignancy. HPV High Risk: Negative HPV Genotyping 16: Negative HPV Genotyping 18: Negative Clinical Information LMP:Unknown date Previous PAP test: Unknown date/findings Material Received ThinPrep-Cervical PAP Disclaimer As of July 13, 2024, the technical services to include automated prescreening performed by the ThinPrep Imaging System, PAP screening and HPV testing will be performed at [facility] (CLIA #[id number]), [address] [place] [address]. Testing for HPV was performed using the [employer] BENNETT 6800 system. The presence of HPV in the female genital tract is associated with a number of diseases, including cervical carcinoma. The HPV DNA high risk pool tests for HPV 31, 33, 35, 39, 45, 51, 52, 56, 58, 59, 66 and 68. The testing for HPV 16 and 18 genotypes has also been performed. A positive result indicates detection of nucleic acid sequences from one or more subtypes, whereas a negative result indicates such sequences were not detected. All professional services are performed by [facility] ([address] [place] [id number]; ; CLIA #[id number]). The PAP Test is a screening procedure with the inherent possibility of both false negative and false positive results. Results should be interpreted in the context of historic and current clinical findings. Reliability of the PAP Test is enhanced by performing the test on a regular repetitive basis. ----- ------- Signed (signature on file) REBECCA Ortega (ASC) 04/07/25 1133 ----- ------- END OF REPORT us Jose Cruz Martinez [facility] CYTOLOGY ORDERABLES F inal Result Performing Organization Address [facility] Co de Phone Number [facility] [address] [place] [phone] * (ABNORMAL) Bacterial Vaginosis (03/30/2025 3:00 PM EDT) TRICHOMONAS VAGINALIS DETECTION BY PCR NOT DETECTED Not Detect [facility] BACTERIAL VAGINOSIS DETECTION BY PCR POSITIVE(A) Negative [facility] Comment:The BV organism targ ets of the Xpert Xpress MVP test can becommensal in women; Xpert Xpress MVP positive results forbacterial vaginosis should be considered in conjunction withother clinical and patient information to determine thedisease status. Organisms that are not detected by the XpertXpress MVP test have also been reported to be associatedwith BV and aerobic vaginitis.The Xpert Xpress MVP test performance has not been evaluatedin patients under the age of 14. IVETTE GROUP DETECTION BY PCR DETECTED(A) Not Detect [facility] Ivette glab krusei PCR NOT DETECTED Not Detect [facility] Swab Vaginal structure / Unknown 03/30/2025 3:00 PM EDT 03/30/2025 6:18 PM EDT us Jennifer Jason MD LAB MICROBIOLOGY - GE NERAL ORDERABLES Final Result Performing Organization Address [facility] Co de Phone Number [facility] [address] [place] [phone] * HEPATITIS C AB W/REFL TO HCV RNA, QN, PCR (02/28/2022 10:12 AM EDT) HEPATITIS C ANTIBODY NON-REACT DHRUV NON-REACT DHRUV [facility] INDEX 0.16 <1.00 [facility] Comment: HCV antibody was non-reactive. There is no laboratory evidence of HCV infection. In most cases, no further action is required. However, if recent HCV exposure is suspected, a test for HCV RNA (test code 27534) is suggested. For additional information please refer to http://Synchris.TheRanking.com/faq/UCY22d9 (This link is being provided for informational/ educational purposes only.) 02/28/2022 10:1 2 AM EDT us Jennifer Jason MD HISTORICAL/NON ORDERA BLE LABS Final Result Performing Organization Address [facility] Co de Phone Number [facility] [address] [place] [address], * HIV 1/2 ANTIGEN/ANTIBODY,FOURTH GENERATION W/RFL (02/28/2022 10:12 AM EDT) Pathologist [facility] HIV-1/2 ANTIGEN AND ANTIBODIES, 4TH GENERATION W/ REFLEX NON-REACT DHRUV NON-REACT DHRUV [facility] Comment: HIV-1 antigen and HIV-1/HIV-2 antibodies were not detected. There is no laboratory evidence of HIV infection. PLEASE NOTE: This information has been disclosed to you from records whose confidentiality may be protected by state law. If your state requires such protection, then the state law prohibits you from making any further disclosure of the information without the specific written consent of the person to whom it pertains, or as otherwise permitted by law. A general authorization for the release of medical or other information is NOT sufficient for this purpose. For additional information please refer to http://Synchris.TheRanking.com/faq/GSP668 (This link is being provided for informational/ educational purposes only.) The performance of this assay has not been clinically validated in patients less than 2 years old. 02/28/2022 10:1 2 AM EDT us Jennifer Jason MD LAB BLOOD ORDERABLES Final Result Performing Organization Address [facility] de Phone Number [facility] [address] [place] [address], * (ABNORMAL) LIPID PANEL, STANDARD (02/28/2022 10:12 AM EDT) Pathologist [facility] Chol/HDLC Ratio 3.8 <5.0 (calc) [facility] Cholesterol, Total 170 <200 mg/dL [facility] HDL Cholesterol 45 > OR = 40 mg/dL [facility] LDL Cholesterol 109(H) mg/dL (calc) [facility] Comment: Reference range: <100 Desirable range <100 mg/dL for primary prevention; <70 mg/dL for patients with CHD or diabetic patients with > or = 2 CHD risk factors. LDL-C is now calculated using the Beto calculation, which is a validated novel method providing better accuracy than the Friedewald equation in the estimation of LDL-C. Darrin CARL et al. JAMILA. 2013;310(19): 7550-9319 (http://education.[employer].Sociall/faq/VXO166) Non-HDL Cholesterol 125 <130 mg/dL (calc) [facility] Comment: For patients with diabetes plus 1 major ASCVD risk factor, treating to a non-HDL-C goal of <100 mg/dL (LDL-C of <70 mg/dL) is considered a therapeutic option. Triglycerides 71 <150 mg/dL [facility] 02/28/2022 10:1 2 AM EDT Jennifer Jason MD LAB BLOOD ORDERABLES Final Result [facility] [address] from Last 3 Months or Most Recently Relevant to Health Maintenance Insurance [facility] MEDICARE SUPPLEMENT Care Teams Aircraft Dispatcher Relationship Specialty Start Date End Date Jennifer Garay MD [address] [place] [phone] PCP - General Family Medicine 02/28/22
--- OUTSIDE RECORDS SUMMARY | 2025-04-26 14:51 | XMS_ITS | Clinical Summary ---
Author Organization [address] [place] [address] Address [address] [place] [phone] Phone Care Team Providers Care [employer] Name Role Phone Jennifer Garay MD Primary Care Provide r Allergies Active Allergy Reactions Criticality Noted Date Comments Wheat 04/11/2025 Medications fluconazole (DIFLUCAN) 150 mg tablet Take 1 tablet (150 mg total) by mouth 1 (one) time. Active gabapentin (NEURONTIN) 300 mg capsule Take 1 capsule (300 mg total) by mouth at bedtime. Active hydrOXYzine pamoate (VISTARIL) 25 mg capsule Take 1 capsule (25 mg total) by mouth every 6 (six) hours if needed for itching. Active LORazepam (ATIVAN) 0.5 mg tablet Take 1 tablet (0.5 mg total) by mouth every 8 (eight) hours if needed for anxiety. Max Daily Amount: 1.5 mg Active metroNIDAZOLE (FLAGYL) 500 mg tablet Take 1 tablet (500 mg total) by mouth 2 (two) times a day. Do not use mouth wash or consume alcohol until 48 hours after last dose Active Encounters Date Type Department Care Team Description 04/10/2025 Telephone [address]astroenter[address] [phone] Lesley Good MD special procedure 03/31/2025 Telephone Gastroenterology [address] [address] Lesley Good MD information needed from Last 3 Months Social History Tobacco Use Types Packs/Day Years [...] Smear 1998 Colorectal Cancer Screening: Colonoscopy 08/20/2022 HIV Screening 08/20/2022 Hepatitis C Screening 08/20/2022 Social Influencers of Health Screening 08/20/2022 COVID-19 Vaccine ( - 2023-2 5 season) 2024 Depression Screening 09/21/2024 Influenza Vaccine (#1) 2025 HIB Vaccines Aged Out No longer eligi [...] 5 Years) and At-Risk Patients (6 to 49 Years) Aged Out No longer eligible b ased on patient's age to complete this topic RSV Immunization Patients Un altagracia 20 months Aged Out No longer eligible b ased on patient's age to complete this topic Varicella Vaccines Aged Out No longer eligible based on patient's age to complete this topic Insurance [facility] [address] [place] [address] Care Teams Direct Of Real Estate Relationship Specialty Start Date End Date Jennifer Garay MD [address] [facility] [address] [place] [phone] PCP - General Internal Medicine 03/31/25
== END 2025-04-26 15:27 | disposition home or self-care (01) ==
LOC: HO.HOS 14:23
PROVIDERS: PCP Internal Medicine; Visit Provider Orthopaedic Surgery
DX: G56.01 Carpal tunnel syndrome, right upper limb (principal); M65.331 Trigger finger, right middle finger
CPT/HCPCS: 99204

== ENCOUNTER 2025-05-11 16:22 | Outpatient (REF) | payer OTHER, SELFPAY ==
--- OUTSIDE RECORDS SUMMARY | 2025-05-11 16:24 | XMS_ITS | Clinical Summary ---
Author Organization [address] [place] [address] Address [address] [place] [phone] Phone Care Team Providers Care Machine Tester Name Role Phone Jennifer Garay MD Primary [...] Department Care Team Description 04/10/2025 Telephone Gastroenterology [address] [phone] Lesley Godo MD special procedure 03/31/2025 Telephone Gastroenterology [address] [phone] Lesley Good MD information needed from Last 3 Months Social History Tobacco Use Types Packs/Day Years Used Date Smoking Tobacco: Never Assessed Comments Unknown Sex and Gender Information Value Date Recorded Sex Assigned at Not on file Legal Sex Female 3:32 PM EST Gender Identity Not on file Sexual Orientation Not on file Plan of Treatment Upcoming Encounters Date Type Department Care Team (Late st Contact Info) Description 07/10/2025 1:00 PM EDT Appointment [facility] Endoscopy [address] [place] [phone] Lesley Good MD [address] [facility] [address] [place] [address] Health Maintenance Due Date Last Done Comments Breast Cancer Screening 1977 DTaP,Tdap,and Td Vaccines (1 - Tdap) 1996 Hepatitis B Vaccines (1 of 3 - 19+ 3-dose series) 1996 Cervical Cancer Screening: P ap Smear 1998 Colorectal Cancer Screening: Colonoscopy 08/20/2022 HIV Screening 08/20/2022 Hepatitis C Screening 08/20/2022 Social Influencers of Health Screening 08/20/2022 COVID-19 Vaccine (2023-2 5 season) 2024 Depression Screening 09/21/2024 Influenza [...] patient's age to complete this topic Insurance [facility] Care Teams Machine Tester Relationship Specialty Start Date End Date Jennifer Garay MD [address] [place] [phone] PCP - General Internal Medicine 03/31/25
--- OUTSIDE RECORDS SUMMARY | 2025-05-11 16:25 | XMS_ITS | Clinical Summary ---
Author Organization [facility] Address [address] [facility] 7t [place] [address] Care Team Providers Care Chemical Operations And Training Name Role Phone Jennifer Garay MD Primary [...] take another tablet 2 tablet 5 Active Active Problems Problem Noted Date Diagnosed Date Encounter for preventive care 03/30/2025 Assessment & Plan (03/30/2025 3:44 PM EDT): See HPI Vaginal discharge 03/30/2025 EMMA (generalized anxiety disorder) 01/28/2024 Assessment & Plan (03/30/2025 3:44 PM EDT): Counseling done today I will refer patient to [facility] Patient declines for now medications she will consider them on next appointment Trigger middle finger of right hand 01/21/2024 Assessment & Plan (01/21/2024 10:48 AM EDT): Referral to hand specialist Mabeldeolum externum of right upper eyelid Assessment & Plan (01/08/2024 2:05 PM EDT): -provided reassurance -encouraged frequent warm compresses -tx with erythromycin ointment -advised contact [facility] if sx do not resolve Right wrist pain 12/15/2023 Assessment & Plan (01/25/2025 6:26 AM EDT): - Likely carpal tunnel syndrome. Continue using brace. Will send gabapentin. Pt is unable to use Ibuprofen. - Evaluate with nerve conduction test. Patient requests [facility] to be [facility] at [facility]. - Will refer to ortho. Patient lives in [place] and works in [place], and prefers specialists closer to her home [...] intervention , Patient to reach out to [facility] team as needed, Patient to engage in OP therapy , and Patient to reach out to [facility] as needed Assessment & Plan (01/21/2024 10:49 AM EDT): Do not miss appointment with therapist hopefully she will be put on waiting list for psychiatrist as well Counseling done today Assessment & Plan (12/15/2023 11:39 AM EDT): Counseling done [facility] referral Encounters * This document contains information received from the source organization and may not represent a complete record from that organization. Date Type Department Care Team Description 05/02/2025 3:30 PM EDT Clinical Support [facility] MEDICINE [address] [place] [id number] Ellen José, JAYA Encounter for immunization 05/02/2025 Travel 04/10/2025 Results Follow-Up [facility] MEDICINE [address] [place] [address] Jose Cruz Martinez CNM Pap Smear 04/04/2025 9:30 AM EDT Procedure Visit [address] [address] Jose Cruz Martinez CNM Cervical cancer screening (Primary Dx); Screening examination for venereal disease; Abnormal uterine bleeding (AUB); Family history of breast cancer in sister; Foreign body in vagina, initial encounter 04/04/2025 Orders Only [address] [address] Jose Cruz Martinez CNM 04/04/2025 Travel 04/03/[address] [address] Jose Cruz Martinez CNM chart prep 03/31/2025 Results Follow-Up [address] [address] Jennifer Garay MD Bacterial Vaginosis 03/30/2025 2:45 PM EDT Office Visit [address] [address] Jennifer Garay MD Cigarette smoker (Primary Dx); Encounter for preventive care; Vaginal discharge; EMMA (generalized anxiety disorder); Severe episode of recurrent major depressive disorder, without psychotic features (CMS/HCC); Colon cancer screening; Encounter for screening mammogram for malignant neoplasm of breast; Encounter for immunization 03/30/[address] [address] Jennifer Garay MD MAMMO FAX 03/30/2025 Travel 03/29/[address] [address] Jennifer Garay MD Chart prep 03/21/2025 Patient Outreach [address] [address] Jennifer Garay MD Pre-visit Planning ([facility] screening completed on 02/09/25) 02/09/2025 Patient Outreach [address] [address] Jennifer Garay MD Care Coordination (C3 CHRena Giordano telephone call outreach) 02/09/2025 Patient Outreach [facility] MEDICINE [address] [place] [address] Jennifer Garay MD Pre-visit Planning (SDOH Screening is positive and Tobacco screening is negative) from Last 3 Months Immunizations Immunization Administration Dates Next Due DTaP 01/21/2013 HepB-CpG 05/02/2025,03/30/2025 Tdap 03/30/2025 Family History Medical History Relation [...] your housing situation today? I have donna david 02/09/[address] you li [...] Care Team (Late st Contact Info) Description 07/13/2025 9:00 AM EDT Office Visit [facility] OPTOMETRY [address] [place], [place] [phone] Audelia Deleon, OD [address] [place] [address] Health Maintenance Due Date Last Done Comments CT Colonography 1977 Colonoscopy 1977 Colorectal Cancer Screening 1977 Dental Oral Exam 1977 Dental Prophylaxis 1977 Dental X-Ray: Full Mouth 1977 FIT DNA/Cologuard 1977 FIT 1977 FOBT 1977 Sigmoidoscopy 1977 Pneumococcal Vaccine: Pediatrics (0 to 5 Years) and At-Risk Patients (6 to 49) Years (1 of 2 - PCV) 1996 Mammogram 2017 COVID-19 Vaccine (2023-2 5 season) 2024 09/30/2021, 04/22/2021, 03/17/2021 Dental X-Ray: Bitewings 08/06/2024 08/05/2023 Influenza Vaccine (#1) 2025 Depression Monitoring 09/30/2025 [...] Completed 02/28/2022 Hepatitis C Screening Completed 02/28/2022 Hepatitis B Vaccines Completed 05/02/2025, 03/30/2025 HIB Vaccines Aged Out No longer eligi [...] EDT) Trichomonas (NAAT) NOT DETECTED NOT DETECTED [facility] Comment:The analytical perfo rmance characteristics of thisassay have been determined by [employer]. Themodifications have not been cleared or approved bythe FDA. This assay has been validated pursuant to theCLIA regulations and is used for clinical purposes.For additional information, please refer tohttp://education.Genterpret/faq/Trichomonastma(This link is being provided for information/educational purposes only.)THIS TEST WAS PERFORMED AT:[facility] [address] [phone] ARNOLD MD CTNG Ref Lab NOT DETECTED NOT DETECTED [facility] NG Ref Lab NOT DETECTED NOT DETECTED [facility] ThinPrep vial Cervix uteri structure / Unknown 04/04/2025 9:48 AM EDT 04/05/2025 8:04 AM EDT Narrative [facility] - 04/06/2025 9:58 PM EDT Collection Date: [id number] by: NNAMDI Vu: Cervix Jose Cruz Martinez [facility] CYTOLOGY ORDERABLES F inal Result Performing Organization Address City/[facility]/ZIP Co de Phone Number [facility] [address] [place] [address] [phone] * HPV DNA, Low/High Risk (04/04/2025 9:48 AM EDT) HPV High Risk Negative Negative [facility] HPV Genotype 16 Negative Negative [facility] HPV Genotype 18 Negative Negative [facility] Comment:HPV testing performe d at [facility] (CLIA#[id number]), [address] [place] [address].Testing for HPV was performed using the Elkin [...] 04/05/2025 8:04 AM EDT Jose Cruz Martinez [facility] BLOOD ORDERABLES Oliva l Result Performing Organization Address City/[facility]/ZIP Co de Phone Number [facility] [address] [place] [address] [phone] * Pap Smear (04/04/2025 9:48 AM EDT) Swab Cervix uteri structure / Unknown 04/04/2025 9:48 AM EDT 04/05/2025 8:04 AM EDT [facility] - 04/07/2025 11:33 AM EDT ----- ------- Name: Delia Mays Age/Sex: 49/F : 1975 Unit#: [id number] Attend Dr: JOSE CRUZ MARTINEZ CNM Re04/04/25 Status: DEP [facility] Disch: ----- ------- SPEC : [id number] RECD: 04/05/25 STATUS: IRMA MARIELLA NUM: [id number] ADRIAN: 04/04/[address] [facility] [address]: JOSE CRUZ MARTINEZ CNM ENTERED: 04/05/25 SP TYPE: Pap Smr [facility] DR: ORDERED: Pap Smear Interpretation Satisfactory for [...] and HPV testing will be performed at [facility] (CLIA #[id number]), [address] [place] [address]. Testing for HPV was performed using the [employer] C4X Discovery0 system. The presence of HPV in the [...] detected. All professional services are performed by [facility] ([address] [place] [id number]; ; CLIA #[id number]). The PAP Test is a screening procedure with the inherent possibility of both false negative and false positive results. Results should be interpreted in the context of historic and current clinical findings. Reliability of the PAP Test is enhanced by performing the test on a regular repetitive basis. ----- ------- Signed (signature on file) REBECCA Ortega (ASCP) 04/07/25 1133 ----- ------- END OF REPORT us Jose Cruz [facility] CYTOLOGY ORDERABLES F inal Result [facility] [address] [place] [phone] * (ABNORMAL) Bacterial Vaginosis (03/30/2025 3:00 PM EDT) TRICHOMONAS VAGINALIS DETECTION BY PCR NOT DETECTED Not Detect [facility] BACTERIAL VAGINOSIS DETECTION BY PCR POSITIVE(A) Negative [facility] Comment:The BV organism targ ets of [...] GROUP DETECTION BY PCR DETECTED(A) Not Detect [facility] Ivette glab krusei PCR NOT DETECTED Not Detect [facility] Swab Vaginal structure / Unknown 03/30/2025 3:00 PM EDT 03/30/2025 6:18 PM EDT us Jennifer Jason MD LAB MICROBIOLOGY - [place] ORDERABLES Final Result [facility] [address] [place] [phone] * HEPATITIS C AB W/REFL TO HCV RNA, QN, PCR (02/28/2022 10:12 AM EDT) HEPATITIS C ANTIBODY NON-REACT DHRUV NON-REACT DHRUV [facility] INDEX 0.16 <1.00 [facility] Comment: HCV antibody was non-reactive. There is no laboratory evidence of HCV infection. In most cases, no further action is required. However, if recent HCV exposure is suspected, a test for HCV RNA (test code 71345) is suggested. For additional information please refer to http://education.Genterpret/faq/EHS15x1 (This link is being provided for informational/ educational purposes only.) 02/28/2022 10:1 2 AM EDT us Jennifer Jason MD HISTORICAL/NON ORDERA BLE LABS Final Result Performing Organization Address [facility] de Phone Number [facility] [address] [place] [address], * HIV 1/2 ANTIGEN/ANTIBODY,FOURTH GENERATION W/RFL (02/28/2022 10:12 AM EDT) HIV-1/2 ANTIGEN AND ANTIBODIES, 4TH GENERATION W/ REFLEX NON-REACT DHRUV NON-REACT DHRUV [facility] Comment: HIV-1 antigen and HIV-1/HIV-2 [...] purpose. For additional information please refer to http://education.Genterpret/faq/RJS168 (This link is being provided for informational/ educational purposes only.) The performance of this assay has not been clinically validated in patients less than 2 years old. 02/28/2022 10:1 2 AM EDT Jennifer Jason MD LAB BLOOD ORDERABLES Final Result Performing Organization Address [facility] de Phone Number [facility] [address] [place] [address], * (ABNORMAL) LIPID PANEL, STANDARD (02/28/2022 10:12 AM EDT) Chol/HDLC Ratio 3.8 <5.0 (calc) [facility] [...] factors. LDL-C is now calculated using the Darrin-Gregorio calculation, which is a validated novel method providing better accuracy than the Friedewald equation in the estimation of LDL-C. Darrin CARL et al. JAMILA. 2013;310(19): 8312-2371 (http://education.T-VIPS.[employer]/faq/YJR646) Non-HDL Cholesterol 125 <130 mg/dL (calc) [facility] Comment: For patients with diabetes plus 1 major ASCVD risk factor, treating to a non-HDL-C goal of <100 mg/dL (LDL-C of <70 mg/dL) is considered a therapeutic option. Triglycerides 71 <150 mg/dL [facility] 02/28/2022 10:1 2 AM EDT Jennifer Jason MD LAB BLOOD ORDERABLES Final Result [facility] [address] from Last 3 Months or Most Recently Relevant to Health Maintenance Insurance Care Teams Chemical Operations And Training Relationship Specialty Start Date End Date Jennifer Garay MD [address] [place] [phone] PCP - General Family Medicine 02/28/22
--- OUTSIDE RECORDS SUMMARY | 2025-05-11 16:25 | XMS_ITS | Patient Health Record ---
Author Organization [facility] Address [address] [place] [address] Care Team Providers Care Washtub Worker Name Role Phone KRYSTAL EVANS CNM Primary Care Provider Rajan Olivia Jr Unavailable [phone] Reason For Referral No Information Plan Of Treatment No Information Insurance Providers Payer Name Payer Address Payer Phone Subscriber Number Group Number Insured Name Patient Relationship to Insured Coverage Start Date Coverage End Date MEDICAID OF [facility] [address] [place] [address] [id number] FIGUEROA CUEVAS Self - patient is the insured
== END 2025-05-11 16:23 | disposition home or self-care (01) ==
LOC: HO.MAMMO 16:22
PROVIDERS: PCP Internal Medicine; Visit Provider Internal Medicine
DX: Z12.31 Encounter for screening mammogram for malignant neoplasm of breast (principal)
CPT/HCPCS: 77063; 77067

== ENCOUNTER → 2025-05-11 16:30 | Outpatient (BNV) | payer OTHER, SELFPAY | PROVIDERS: PCP Internal Medicine; Visit Provider Internal Medicine | DX: Z12.31 Encounter for screening mammogram for malignant neoplasm of breast (principal) | CPT/HCPCS: 77063; 77067 ==

== ENCOUNTER 2025-06-13 13:36 | Outpatient (REF) | payer OTHER, SELFPAY ==
--- NOTE | ~2025-06-13 | MM_ITS ---
EXAMINATION(S): 1. MM DIAGNOSTIC DIGITAL BREAST TOMOSYNTHESIS, BILATERAL 2. Targeted ultrasound of the right breast 3. Targeted ultrasound of the left breast CLINICAL INFORMATION: Callback from from screening for multiple bilateral findings. COMPARISON: Baseline screening mammogram on May 11, 2025. TECHNIQUE: Digital breast tomosynthesis is performed in full field ML 90 degrees along with computer-aided detection (CAD). Synthesized 2D images are generated from the tomosynthesis. Spot compression tomosynthesis were obtained. FINDINGS: BREAST COMPOSITION: There are scattered areas of fibroglandular density (ACR BI-RADS breast composition Category b). RIGHT BREAST: -Focal asymmetry with questionable architectural distortion in the upper outer quadrant middle depth is pliable with spot compression. -Multiple additional masses persist on today's spot compression views. Targeted ultrasound of the right breast was performed at the location of the mammographic findings, throughout the lateral breast, from 1:00 to 5:00 axis. The survey shows the following findings: -1.2 x 0.5 x 1.1 cm hypoechoic solid mass at 9 o'clock position 7 cm from the nipple. Minimal internal vascularity demonstrated with color Doppler evaluation. -0.5 x 0.2 x 0.4 cm cyst with septation at 8 o'clock position 5 cm from the nipple. -0.6 x 0.4 x 0.4 cm cyst with septation at 10 o'clock position 5 cm from the nipple. -0.6 x 0.4 x 0.5 cm cyst with septation at 11 o'clock position 7 cm from the nipple. -0.4 x 0.2 x 0.3 cm cyst with septation at 1 o'clock position 2 cm from the nipple. LEFT BREAST: Multiple focal asymmetries in the lower breast posterior depth persist with spot compression. Targeted ultrasound of the left breast was performed at the location of the mammographic findings. The survey throughout the lower breast from 5:00 to 7:00 axis shows: -0.5 x 0.2 x 0.4 cm cyst at 5 o'clock position 5 cm from the nipple -0.4 x 0.4 x 0.2 cm cyst with internal septations at 7 o'clock position 3 cm from the nipple. MM/MM tomosynthesis added view BI IMPRESSION: RIGHT BREAST: 1. Solid mass at 9 o'clock position 7 cm from the nipple. Suspicious findings. Ultrasound-guided needle core biopsy is recommended. 2. Multiple small septated cysts were identified during today's sonographic survey. Difficult to be certain of the correlation with the mammographic findings. Dedicated ultrasound follow-up is not needed for these cysts, however, a 6-month follow-up mammogram is recommended for the mammographic findings. LEFT BREAST: Difficult to be certain that the identified cysts correlate with the mammographic findings. Dedicated ultrasound follow-up is not indicated for the cysts, however, a 6-month follow-up mammogram is recommended for the mammographic findings. ASSESSMENT: BI-RADS 4 - Suspicious finding RECOMMENDATION: Biopsy recommended Results and recommendations were discussed with the patient at time of visit. This patient's information was entered into a reminder system with a target due date for their next mammogram. Electronically signed by: Robbie Zurita MD 06/13/2025 03:22 PM EDT
--- OUTSIDE RECORDS SUMMARY | 2025-06-13 16:42 | XMS_ITS | Clinical Summary ---
Author Organization [address] [place] [address] Address [address] [place] [address] Phone Care Team Providers Care Concrete Worker Name Role Phone Jennifer Garay MD [...] Department Care Team Description 04/10/2025 Telephone [address] [phone] Lesley Good MD 03/31/2025 Telephone Gastroenterology [address] [phone] Lesley Good MD from Last 3 Months Social History Tobacco [...] Info) Description 07/10/2025 1:00 PM EDT Appointment [facility] Endoscopy [address] [place] [phone] Lesley Good MD [address] [facility] [address] [place] [address] Health Maintenance Due Date Last Done Comments Breast Cancer Screening 1977 DTaP,Tdap,and Td Vaccines (1 - Tdap) 1996 Hepatitis B Vaccines (1 of 3 - 19+ 3-dose series) 1996 Cervical Cancer Screening: P ap Smear 1998 Colorectal Cancer Screening: Colonoscopy 08/20/2022 HIV Screening 08/20/2022 Hepatitis C Screening 08/20/2022 Social Influencers of Health Screening 08/20/2022 Depression Screening 09/21/2024 COVID-19 Vaccine (1 - 2023-2 5 season) 2025 Influenza Vaccine (#1) 2025 RSV Immunization Adult Patie nts (1 - 1-dose 75+ series) 2052 HIB Vaccines Aged Out No longer eligi [...] patient's age to complete this topic Insurance [facility] [address] [place] [address] Care Teams Concrete Worker Relationship Specialty Start Date End Date Jennifer Garay MD [address] [place] [phone] PCP - General Internal Medicine 03/31/25
--- OUTSIDE RECORDS SUMMARY | 2025-06-13 16:43 | XMS_ITS | Patient Health Record ---
Author Organization [facility] Address [address] [place] [address] Care Team Providers Care Vocational Counselor Name Role Phone KRYSTAL EVANS CNM Primary Care Provider Rajan Olivia Jr Unavailable Reason For Referral No Information Plan Of Treatment No Information Insurance Providers Payer Name Payer Address Payer Phone Subscriber Number Group Number Insured Name Patient Relationship to Insured Coverage Start Date Coverage End Date MEDICAID OF [facility] [address] [place] [phone] [id number] FIGUEROA CUEVAS Self - patient is the insured
--- OUTSIDE RECORDS SUMMARY | 2025-06-13 16:43 | XMS_ITS | Encounter Summary ---
Author Organization [employer] Address [address] [facility] [address] [address] 7t [place] [address] Care Team Providers Care Comber Fixer Name Role Phone Jennifer Garay MD Primary Care Provide r Encounter Details Date Type Department Care Team (Late st Contact Info) Description 04/10/2025 Results Follow-Up [facility] MEDICINE [address] [place], [place] [phone] Brooke Raphael CNM [address] [place] [address] Pap Smear Social History Tobacco Use Types Packs/Day Years Used Date Smoking Tobacco: Every Day Cigarettes Passive Smoke Exposure: Current Smokeless Tobacco: Never Alcohol Use Standard Drinks/Week Comments Never 0 [...] AM EDT documented as of this encounter Plan of Treatment Upcoming Encounters Date Type Department Care Team (Late st Contact Info) Description 07/13/2025 9:00 AM EDT Office Visit [facility] OPTOMETRY [address] [place] [address] TarkaAudelia, OD [address] [place] [address] documented as of this encounter Visit Diagnoses Not on filedocumented in this encounter Additional Health Concerns Assessment Noted Time PHQ-9 Depression Total Score: 15 025 2:31 PM EDT documented as of this encounter Care Teams Comber Fixer Relationship Specialty Start Date End Date Jennifer Garay MD [address] [place] [address] PCP - General Family Medicine 02/28/22 documented as of this encounter
--- OUTSIDE RECORDS SUMMARY | 2025-06-13 16:43 | XMS_ITS | Clinical Summary ---
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 Patient declines for now medications she will consider them on next appointment Trigger middle finger of right hand 01/21/2024 Assessment & Plan (01/21/2024 10:48 AM EDT): Referral to hand specialist Mabeldeolum externum of right upper eyelid Assessment & Plan (01/08/2024 2:05 PM EDT): -provided reassurance -encouraged frequent warm compresses -tx with erythromycin ointment -advised contact [facility] if sx do not resolve Right wrist pain 12/15/2023 Assessment & Plan (01/25/2025 6:26 AM EDT): - Likely carpal tunnel syndrome. Continue using brace. Will send gabapentin. Pt is unable to use Ibuprofen. - Evaluate with nerve conduction test. Patient requests it to be done at [facility]. - Will refer to ortho. Patient lives in [place] and works in [place], and prefers specialists closer to her home [...] intervention , Patient to reach out to [facility] team as needed, Patient to engage in OP therapy , and Patient to reach out to [facility] as needed Assessment & Plan (01/21/2024 10:49 AM EDT): Do not miss appointment with therapist hopefully she will be put on waiting list for psychiatrist as well Counseling done today Assessment & Plan (12/15/2023 11:39 AM EDT): Counseling done [facility] referral Encounters * This document contains information received from the source organization and may not represent a complete record from that organization. Date Type Department Care Team Description 06/13/2025 Orders Only [address] [address] Jennifer Garay MD 05/02/2025 3:30 PM EDT Clinical Support [address] [address] Ellen José, JAYA Encounter for immunization 05/02/2025 Travel 04/10/2025 Results Follow-Up [address] [place] [address] Jose Cruz Martinez CNM Pap Smear 04/04/2025 9:30 AM EDT Procedure Visit [address] [place] [address] Jose Cruz Martinez CNM Cervical cancer screening (Primary Dx); Screening examination for venereal disease; Abnormal uterine bleeding (AUB); Family history of breast cancer in sister; Foreign body in vagina, initial encounter 04/04/2025 Orders Only [address] [address] Jose Cruz Martinez CNM 04/04/2025 Travel 04/03/[address] [address] Jose Cruz Martinez CNM chart prep 03/31/2025 Results Follow-Up [address] [address] Jennifer Garay MD Bacterial Vaginosis 03/30/2025 2:45 PM EDT Office Visit [address] [address] Jennifer Garay MD Cigarette smoker (Primary Dx); Encounter for preventive care; Vaginal discharge; EMMA (generalized anxiety disorder); Severe episode of recurrent major depressive disorder, without psychotic features (CMS/HCC); Colon cancer screening; Encounter for screening mammogram for malignant neoplasm of breast; Encounter for immunization 03/30/[address] [address] Jennifer Garay MD MAMMO FAX 03/30/2025 Travel 03/29/[address] [address] Jennifer Garay MD Chart prep 03/21/2025 Patient Outreach [address] [address] Jennifer Garay MD Pre-visit Planning ([facility] screening completed on 02/09/25) from Last 3 Months Immunizations Immunization Administration [...] Description 07/13/2025 9:00 AM EDT Office Visit [facility] OPTOMETRY [address] [place] [address] Audelia Deleon, OD [address] [place] [address] Health Maintenance Due Date Last Done Comments CT Colonography 1975 Colonoscopy 1977 Colorectal Cancer Screening 1977 Dental Oral Exam 1977 Dental Prophylaxis 1977 Dental X-Ray: Full Mouth 1977 FIT DNA/Cologuard 1977 FIT 1977 FOBT 1977 Sigmoidoscopy 1977 Pneumococcal Vaccine: Pediatrics (0 to 5 Years) and At-Risk Patients (6 to 49) Years (1 of 2 - PCV) 1996 Dental X-Ray: Bitewings 08/06/2024 08/05/2023 COVID-19 Vaccine ( - 2024-2 6 season) 2025 09/30/2021, 04/22/2021, 03/17/2021 Influenza Vaccine (#1) 2025 Depression Monitoring 09/30/2025 03/30/2025 , 03/30/2025 SDOH Screening 02/09/2026 02/09/2025 Alcohol/Substance Use Screening 03/30/2026 03/30/2025 Disability Screening 04/04/2026 04/04/2025 Family Planning (PISQ) 04/04/2026 04/04/2025 Tobacco Screening 04/04/2026 04/04/2025 Lipid Panel 02/28/2027 02/28/2022 Mammogram 06/13/2027 06/13/2025, 05/11/2025 Zoster Vaccines (1 of 2) 2027 Cervical [...] Procedure Name Priority Date/Time Associated Diagnosis Comments BI US BREAST LIMITED BILATERAL Routine 06/13/2025 2:42 PM EDT BI MAMMOGRAM DIAGNOSTIC TOMOSYNTHESIS ADDED VIEW BILATERAL Routine 06/13/2025 1:45 PM EDT BI MAMMOGRAM SCREENING TOMOSYNTHESIS BILATERAL Routine 05/11/2025 4:25 PM EDT Encounter for screening mammogram for malignant neoplasm of breast CHLAMYDIA/N. GONORRHOEAE AND T. VAGINALIS RNA, QUAL,TMA Routine 04/04/2025 9:48 AM EDT Screening examination for venereal disease PAP SMEAR Routine 04/04/2025 9:48 AM EDT Cervical cancer screening HPV DNA, LOW/HIGH RISK Routine 9:48 AM EDT BACTERIAL VAGINOSIS PANEL Routine [...] Recently Relevant to Health Maintenance Results * BI US Breast Limited Bilateral (06/13/2025 2:42 PM EDT) Anatomical Region Laterality Modality Breast Bilateral Ultrasound 06/13/2025 2:42 PM EDT Narrative 06/13/2025 3:25 PM EDT [facility] [address] [place] [address] Ultrasound Report Signed Patient: Delia Mays MR#: [id number] : 1975 Acct:[id number] Age/Sex: 49 / F ADM Date: 06/13/25 Loc: HO.MAMMO Attending Dr: Jennifer Jason MD Ordering Physician: Jennifer Garay MD Date of Service: 06/13/25 Procedure(s): US breast BI limited mamm only Accession Number(s): [id number] cc: Jennifer Garay MD Reason for Exam: BILAT. BR AV US FOR ASYMMETRIES EXAMINATION(S): 1. MM DIAGNOSTIC DIGITAL BREAST TOMOSYNTHESIS, BILATERAL 2. Targeted ultrasound of the right breast 3. Targeted ultrasound of the left breast CLINICAL INFORMATION: Callback from from screening for multiple bilateral findings. COMPARISON: Baseline screening mammogram on May 11, 2025. TECHNIQUE: Digital breast tomosynthesis is performed in full field ML 90 degrees along with computer-aided detection (CAD). Synthesized 2D images are generated from the tomosynthesis. Spot compression tomosynthesis were obtained. FINDINGS: BREAST COMPOSITION: There are scattered areas of fibroglandular density (ACR BI-RADS breast composition Category b). RIGHT BREAST: -Focal asymmetry with questionable architectural distortion in the upper outer quadrant middle depth is pliable with spot compression. -Multiple additional masses persist on today's spot compression views. Targeted ultrasound of the right breast was performed at the location of the mammographic findings, throughout the lateral breast, from 1:00 to 5:00 axis. The survey shows the following findings: -1.2 x 0.5 x 1.1 cm hypoechoic solid mass at 9 o'clock position 7 cm from the nipple. Minimal internal vascularity demonstrated with color Doppler evaluation. -0.5 x 0.2 x 0.4 cm cyst with septation at 8 o'clock position 5 cm from the nipple. -0.6 x 0.4 x 0.4 cm cyst with septation at 10 o'clock position 5 cm from the nipple. -0.6 x 0.4 x 0.5 cm cyst with septation at 11 o'clock position 7 cm from the nipple. -0.4 x 0.2 x 0.3 cm cyst with septation at 1 o'clock position 2 cm from the nipple. LEFT BREAST: Multiple focal asymmetries in the lower breast posterior depth persist with spot compression. Targeted ultrasound of the left breast was performed at the location of the mammographic findings. The survey throughout the lower breast from 5:00 to 7:00 axis shows: -0.5 x 0.2 x 0.4 cm cyst at 5 o'clock position 5 cm from the nipple -0.4 x 0.4 x 0.2 cm cyst with internal septations at 7 o'clock position 3 cm from the nipple. US/US breast BI limited mamm only IMPRESSION: RIGHT BREAST: 1. Solid mass at 9 o'clock position 7 cm from the nipple. Suspicious findings. Ultrasound-guided needle core biopsy is recommended. 2. Multiple small septated cysts were identified during today's sonographic survey. Difficult to be certain of the correlation with the mammographic findings. Dedicated ultrasound follow-up is not needed for these cysts, however, a 6-month follow-up mammogram is recommended for the mammographic findings. LEFT BREAST: Difficult to be certain that the identified cysts correlate with the mammographic findings. Dedicated ultrasound follow-up is not indicated for the cysts, however, a 6-month follow-up mammogram is recommended for the mammographic findings. ASSESSMENT: BI-RADS 4 - Suspicious finding RECOMMENDATION: Biopsy recommended Results and recommendations were discussed with the patient at time of visit. This patient's information was entered into a reminder system with a target due date for their next mammogram. Electronically signed by: Robbie Zurita MD 06/13/2025 03:22 PM EDT Dictated By: Robbie Zurita MD Signed By: <Electronically signed by Robbie Zurita MD in OV> 06/13/25 1522 DD/ 1442 TD/TT: 06/13/25 1451 Profiling Machine Setup Operator: Procedure Note Donotuseinterpreter, Image - 06/13/2025 [facility] [address] [place], [place] [address] Ultrasound Report Signed Patient: Nicki Mays#: M [id number] : 1975Acct:[id number] Age/Sex: 49 / FADM Date: 06/13/25 Loc: HO.MAMMO Attending Dr: Jennifer Jason MD Ordering Physician: Jennifer Garay MD Date of Service: 06/13/25 Procedure(s): US breast BI limited mamm only Accession Number(s): [id number] cc: Jennifer Garay MD Reason for Exam: BILAT. BR AV US FOR ASYMMETRIES EXAMINATION(S): 1. MM DIAGNOSTIC DIGITAL BREAST TOMOSYNTHESIS, BILATERAL 2. Targeted ultrasound of the right breast 3. Targeted ultrasound of the left breast CLINICAL INFORMATION: Callback from from screening for multiple bilateral findings. COMPARISON: Baseline screening mammogram on May 11, 2025. TECHNIQUE: Digital breast tomosynthesis is performed in full field ML 90 degrees along with computer-aided detection (CAD). Synthesized 2D images are generated from the tomosynthesis. Spot compression tomosynthesis were obtained. FINDINGS: BREAST COMPOSITION: There are scattered areas of fibroglandular density (ACR BI-RADS breast composition Category b). RIGHT BREAST: -Focal asymmetry with questionable architectural distortion in the upper outer quadrant middle depth is pliable with spot compression. -Multiple additional masses persist on today's spot compression views. Targeted ultrasound of the right breast was performed at the location of the mammographic findings, throughout the lateral breast, from 1:00 to 5:00 axis. The survey shows the following findings: -1.2 x 0.5 x 1.1 cm hypoechoic solid mass at 9 o'clock position 7 cm from the nipple. Minimal internal vascularity demonstrated with color Doppler evaluation. -0.5 x 0.2 x 0.4 cm cyst with septation at 8 o'clock position 5 cm from the nipple. -0.6 x 0.4 x 0.4 cm cyst with septation at 10 o'clock position 5 cm from the nipple. -0.6 x 0.4 x 0.5 cm cyst with septation at 11 o'clock position 7 cm from the nipple. -0.4 x 0.2 x 0.3 cm cyst with septation at 1 o'clock position 2 cm from the nipple. LEFT BREAST: Multiple focal asymmetries in the lower breast posterior depth persist with spot compression. Targeted ultrasound of the left breast was performed at the location of the mammographic findings. The survey throughout the lower breast from 5:00 to 7:00 axis shows: -0.5 x 0.2 x 0.4 cm cyst at 5 o'clock position 5 cm from the nipple -0.4 x 0.4 x 0.2 cm cyst with internal septations at 7 o'clock position 3 cm from the nipple. US/US breast BI limited mamm only IMPRESSION: RIGHT BREAST: 1. Solid mass at 9 o'clock position 7 cm from the nipple. Suspicious findings. Ultrasound-guided needle core biopsy is recommended. 2. Multiple small septated cysts were identified during today's sonographic survey. Difficult to be certain of the correlation with the mammographic findings. Dedicated ultrasound follow-up is not needed for these cysts, however, a 6-month follow-up mammogram is recommended for the mammographic findings. LEFT BREAST: Difficult to be certain that the identified cysts correlate with the mammographic findings. Dedicated ultrasound follow-up is not indicated for the cysts, however, a 6-month follow-up mammogram is recommended for the mammographic findings. ASSESSMENT: BI-RADS 4 - Suspicious finding RECOMMENDATION: Biopsy recommended Results and recommendations were discussed with the patient at time of visit. This patient's information was entered into a reminder system with a target due date for their next mammogram. Electronically signed by: Robbie Zurita MD 06/13/2025 03:22 PM EDT Dictated By: Robbie Zurita MD Signed By: <Electronically signed by Robbie Zurita MD in OV> 06/13/25 1522 DD/ 1442 TD/TT: 06/13/25 1451 Profiling Machine Setup Operator: us Jennifer Jason MD IMG US PROCEDURES Fin al Result * BI Mammogram Diagnostic Tomosynthesis added bilateral (06/13/2025 1:45 PM EDT) Anatomical Region Laterality Modality Breast Left Mammography 06/13/2025 1:45 PM EDT Narrative 06/13/2025 3:25 PM EDT [facility] [address] [place] [address] [place] [address] Mammography Report Signed Patient: Delia Mays MR#: M [id number] : 1975 Acct:[id number] Age/Sex: 49 / F ADM Date: 06/13/25 Loc: HO.MAMMO Attending Dr: Jennifer Jason MD Ordering Physician: Jennifer Garay MD Results: 4Suspicious Finding Date of Service: 09/23/25 Follow Up: Biopsy Recommend ed Procedure(s): MM tomosynthesis added view BI Accession Number(s): [id number] cc: Jennifer Garay MD Reason For Exam: BILAT. BR AV US FOR ASYMMETRIES EXAMINATION(S): 1. MM DIAGNOSTIC DIGITAL BREAST TOMOSYNTHESIS, BILATERAL 2. Targeted ultrasound of the right breast 3. Targeted ultrasound of the left breast CLINICAL INFORMATION: Callback from from screening for multiple bilateral findings. COMPARISON: Baseline screening mammogram on May 11, 2025. TECHNIQUE: Digital breast tomosynthesis is performed in full field ML 90 degrees along with computer-aided detection (CAD). Synthesized 2D images are generated from the tomosynthesis. Spot compression tomosynthesis were obtained. FINDINGS: BREAST COMPOSITION: There are scattered areas of fibroglandular density (ACR BI-RADS breast composition Category b). RIGHT BREAST: -Focal asymmetry with questionable architectural distortion in the upper outer quadrant middle depth is pliable with spot compression. -Multiple additional masses persist on today's spot compression views. Targeted ultrasound of the right breast was performed at the location of the mammographic findings, throughout the lateral breast, from 1:00 to 5:00 axis. The survey shows the following findings: -1.2 x 0.5 x 1.1 cm hypoechoic solid mass at 9 o'clock position 7 cm from the nipple. Minimal internal vascularity demonstrated with color Doppler evaluation. -0.5 x 0.2 x 0.4 cm cyst with septation at 8 o'clock position 5 cm from the nipple. -0.6 x 0.4 x 0.4 cm cyst with septation at 10 o'clock position 5 cm from the nipple. -0.6 x 0.4 x 0.5 cm cyst with septation at 11 o'clock position 7 cm from the nipple. -0.4 x 0.2 x 0.3 cm cyst with septation at 1 o'clock position 2 cm from the nipple. LEFT BREAST: Multiple focal asymmetries in the lower breast posterior depth persist with spot compression. Targeted ultrasound of the left breast was performed at the location of the mammographic findings. The survey throughout the lower breast from 5:00 to 7:00 axis shows: -0.5 x 0.2 x 0.4 cm cyst at 5 o'clock position 5 cm from the nipple -0.4 x 0.4 x 0.2 cm cyst with internal septations at 7 o'clock position 3 cm from the nipple. MM/MM tomosynthesis added view BI IMPRESSION: RIGHT BREAST: 1. Solid mass at 9 o'clock position 7 cm from the nipple. Suspicious findings. Ultrasound-guided needle core biopsy is recommended. 2. Multiple small septated cysts were identified during today's sonographic survey. Difficult to be certain of the correlation with the mammographic findings. Dedicated ultrasound follow-up is not needed for these cysts, however, a 6-month follow-up mammogram is recommended for the mammographic findings. LEFT BREAST: Difficult to be certain that the identified cysts correlate with the mammographic findings. Dedicated ultrasound follow-up is not indicated for the cysts, however, a 6-month follow-up mammogram is recommended for the mammographic findings. ASSESSMENT: BI-RADS 4 - Suspicious finding RECOMMENDATION: Biopsy recommended Results and recommendations were discussed with the patient at time of visit. This patient's information was entered into a reminder system with a target due date for their next mammogram. Electronically signed by: Robbie Zurita MD 06/13/2025 03:22 PM EDT Dictated By: Robibe Zurita MD Signed By: <Electronically signed by Robbie Zurita MD in OV> 06/13/25 1522 DD/ 1345 TD/TT: 06/13/25 1405 Profiling Machine Setup Operator: Procedure Note Donotuseinterpreter, Image - 06/13/2025 [facility] [address] [place] [address] [place] [address] Mammography Report Signed Patient: Nicki Mays#: M [id number] : 1975Acct:[id number] Age/Sex: 49 / FADM Date: 06/13/25 Loc: HO.MAMMO Attending Dr: Jennifer Jason MD Ordering Physician: Jennifer Garay MDResults: 4Suspicious Finding Date of Service: 06/13/25Follow Up: Biopsy Recommend ed Procedure(s): MM tomosynthesis added view BI Accession Number(s): [id number] cc: Jennifer Garay MD Reason For Exam: BILAT. BR AV US FOR ASYMMETRIES EXAMINATION(S): 1. MM DIAGNOSTIC DIGITAL BREAST TOMOSYNTHESIS, BILATERAL 2. Targeted ultrasound of the right breast 3. Targeted ultrasound of the left breast CLINICAL INFORMATION: Callback from from screening for multiple bilateral findings. COMPARISON: Baseline screening mammogram on May 11, 2025. TECHNIQUE: Digital breast tomosynthesis is performed in full field ML 90 degrees along with computer-aided detection (CAD). Synthesized 2D images are generated from the tomosynthesis. Spot compression tomosynthesis were obtained. FINDINGS: BREAST COMPOSITION: There are scattered areas of fibroglandular density (ACR BI-RADS breast composition Category b). RIGHT BREAST: -Focal asymmetry with questionable architectural distortion in the upper outer quadrant middle depth is pliable with spot compression. -Multiple additional masses persist on today's spot compression views. Targeted ultrasound of the right breast was performed at the location of the mammographic findings, throughout the lateral breast, from 1:00 to 5:00 axis. The survey shows the following findings: -1.2 x 0.5 x 1.1 cm hypoechoic solid mass at 9 o'clock position 7 cm from the nipple. Minimal internal vascularity demonstrated with color Doppler evaluation. -0.5 x 0.2 x 0.4 cm cyst with septation at 8 o'clock position 5 cm from the nipple. -0.6 x 0.4 x 0.4 cm cyst with septation at 10 o'clock position 5 cm from the nipple. -0.6 x 0.4 x 0.5 cm cyst with septation at 11 o'clock position 7 cm from the nipple. -0.4 x 0.2 x 0.3 cm cyst with septation at 1 o'clock position 2 cm from the nipple. LEFT BREAST: Multiple focal asymmetries in the lower breast posterior depth persist with spot compression. Targeted ultrasound of the left breast was performed at the location of the mammographic findings. The survey throughout the lower breast from 5:00 to 7:00 axis shows: -0.5 x 0.2 x 0.4 cm cyst at 5 o'clock position 5 cm from the nipple -0.4 x 0.4 x 0.2 cm cyst with internal septations at 7 o'clock position 3 cm from the nipple. MM/MM tomosynthesis added view BI IMPRESSION: RIGHT BREAST: 1. Solid mass at 9 o'clock position 7 cm from the nipple. Suspicious findings. Ultrasound-guided needle core biopsy is recommended. 2. Multiple small septated cysts were identified during today's sonographic survey. Difficult to be certain of the correlation with the mammographic findings. Dedicated ultrasound follow-up is not needed for these cysts, however, a 6-month follow-up mammogram is recommended for the mammographic findings. LEFT BREAST: Difficult to be certain that the identified cysts correlate with the mammographic findings. Dedicated ultrasound follow-up is not indicated for the cysts, however, a 6-month follow-up mammogram is recommended for the mammographic findings. ASSESSMENT: BI-RADS 4 - Suspicious finding RECOMMENDATION: Biopsy recommended Results and recommendations were discussed with the patient at time of visit. This patient's information was entered into a reminder system with a target due date for their next mammogram. Electronically signed by: Robbie Zurita MD 06/13/2025 03:22 PM EDT Dictated By: Robbie Zurita MD Signed By: <Electronically signed by Robbie Zurita MD in OV> 06/13/25 1522 DD/ 1345 TD/TT: 06/13/25 1405 Profiling Machine Setup Operator: Jennifer Jason MD IMG BI PROCEDURES Fin al Result * BI Mammogram Screening Tomosynthesis Bilateral (05/11/2025 4:25 PM EDT) Anatomical Region Laterality Modality Breast Bilateral Mammography 05/11/2025 4:25 PM EDT Narrative 05/16/2025 9:10 AM EDT [facility] [address] [place] [address] Mammography Report Signed Patient: Delia Mays MR#: M [id number] : 1975 Acct:[id number] Age/Sex: 49 / F ADM Date: 05/11/25 Loc: HO.MAMMO Attending Dr: Jennifer Jason MD Ordering Physician: Jennifer Garay MD Results: 0Incomplete: Needs Additional Imaging Evaluation Date of Service: 05/11/25 Follow Up: Additional Imagi ng Procedure(s): MM tomosynthesis screening BI Accession Number(s): [id number] cc: Jennifer Garay MD EXAMINATION: MM SCREENING DIGITAL BREAST TOMOSYNTHESIS, BILATERAL CLINICAL INFORMATION: Screening. Asymptomatic. Family history of breast cancer including sister. COMPARISON: Mammography: Baseline. TECHNIQUE: Digital breast mammography with tomosynthesis is performed in both the craniocaudal and mediolateral oblique views along with computer-aided detection (CAD). FINDINGS: There are scattered areas of fibroglandular density (ACR BI-RADS breast composition Category b). Left: Focal asymmetries retroareolar middle and posterior depth. No suspicious calcifications or other abnormal findings. Right: Focal asymmetry upper outer breast anterior to middle depth with questionable architectural distortion. Circumscribed oval mass central outer breast posterior depth. Circumscribed oval mass upper central breast middle depth. Focal asymmetry lower inner breast anterior depth. No suspicious calcifications or other abnormal findings. MM/MM tomosynthesis screening BI IMPRESSION: Additional imaging is recommended ASSESSMENT: BI-RADS BI-RADS 0 - Incomplete: Needs additional Imaging. RECOMMENDATION: 1. Additional views of the bilateral breasts. 2. Targeted ultrasound if warranted after review of the additional views. 3. Radiology department staff will contact the patient for additional imaging. Additional Imaging required This examination should not preclude the clinical evaluation of a suspicious palpable abnormality. This patient's information was entered into a reminder system with a target due date for their next mammogram. Electronically signed by: Demetria Escalante DO 05/16/2025 09:07 AM EDT Dictated By: Demetria Escalante DO Signed By: <Electronically signed by Demetria Escalante DO in OV> 05/16/25 0907 DD/ 1625 TD/TT: 05/11/25 1642 Profiling Machine Setup Operator: Procedure Note Donotuseinterpreter, Image - 05/16/2025 [facility] [address] [place] [address] Mammography Report Signed Patient: Nicki Mays#: M [id number] : 1975Acct:[id number] Age/Sex: 49 / FADM Date: 05/11/25 Loc: HO.MAMMO Attending Dr: Jennifer Jason MD Ordering Physician: Jennifer Garay MD Results: 0Incomplete: Needs Additional Imaging Evaluation Date of Service: 05/11/25Follow Up: Additional Imagi ng Procedure(s): MM tomosynthesis screening BI Accession Number(s): [id number] cc: Jennifer Garay MD EXAMINATION: MM SCREENING DIGITAL BREAST TOMOSYNTHESIS, BILATERAL CLINICAL INFORMATION: Screening. Asymptomatic. Family history of breast cancer including sister. COMPARISON: Mammography: Baseline. TECHNIQUE: Digital breast mammography with tomosynthesis is performed in both the craniocaudal and mediolateral oblique views along with computer-aided detection (CAD). FINDINGS: There are scattered areas of fibroglandular density (ACR BI-RADS breast composition Category b). Left: Focal asymmetries retroareolar middle and posterior depth. No suspicious calcifications or other abnormal findings. Right: Focal asymmetry upper outer breast anterior to middle depth with questionable architectural distortion. Circumscribed oval mass central outer breast posterior depth. Circumscribed oval mass upper central breast middle depth. Focal asymmetry lower inner breast anterior depth. No suspicious calcifications or other abnormal findings. MM/MM tomosynthesis screening BI IMPRESSION: Additional imaging is recommended ASSESSMENT: BI-RADS BI-RADS 0 - Incomplete: Needs additional Imaging. RECOMMENDATION: 1. Additional views of the bilateral breasts. 2. Targeted ultrasound if warranted after review of the additional views. 3. Radiology department staff will contact the patient for additional imaging. Additional Imaging required This examination should not preclude the clinical evaluation of a suspicious palpable abnormality. This patient's information was entered into a reminder system with a target due date for their next mammogram. Electronically signed by: Demetria Escalante DO 05/16/2025 09:07 AM EDT Dictated By: Demetria Escalante DO Signed By: <Electronically signed by Demetria Escalante, DO in OV> 05/16/25 0907 DD/ 1625 TD/TT: 05/11/25 1642 Profiling Machine Setup Operator: us Jennifer Jason MD IMG BI PROCEDURES Fin al Result * STI testing add on (NG, CT, Trich) (04/04/2025 9:48 AM EDT) Trichomonas (NAAT) NOT DETECTED NOT DETECTED [facility] Comment:The analytical perfo rmance characteristics of thisassay have been determined by [facility]. Themodifications have not been cleared or approved bythe FDA. This assay has been validated pursuant to theIA regulations and is used for clinical purposes.For additional information, please refer tohttp://education.ViewRay/faq/Trichomonastma(This link is being provided for information/educational purposes only.)THIS TEST WAS PERFORMED AT:[facility] [place] [phone] ARNOLD MD CTNG Ref Lab NOT DETECTED NOT DETECTED [facility] NG Ref Lab NOT DETECTED NOT DETECTED [facility] ThinPrep vial Cervix uteri structure / Unknown 04/04/2025 9:48 AM EDT 04/05/2025 8:04 AM EDT Narrative [facility] - 04/06/2025 9:58 PM EDT Collection Date: [id number] by: NNAMDI Vu: Cervix us Jose Cruz Martinez [facility] LAB CYTOLOGY ORDERABLES F inal Result [facility] [address] [place] [phone] [phone] * HPV DNA, Low/High Risk (04/04/2025 9:48 AM EDT) HPV High Risk Negative Negative [facility] HPV Genotype 16 Negative Negative [facility] HPV Genotype 18 Negative Negative [facility] Comment:HPV testing performe d at [facility] (CLIA#[id number]), [address] [place] [address].Testing for HPV was performed using the Elkin [...] 9:48 AM EDT 04/05/2025 8:04 AM EDT us Jose Cruz Martinez CNM LAB BLOOD ORDERABLES Oliva l Result [facility] [address] [place] [phone] * Pap Smear (04/04/2025 9:48 AM EDT) Swab Cervix uteri structure / Unknown 04/04/2025 9:48 AM EDT 04/05/2025 8:04 AM EDT Narrative [facility] - 04/07/2025 11:33 AM EDT ----- ------- Name: Balta AguileraDelia Age/Sex: 49/F : 1975 Unit#: [id number] Attend Dr: JOSE CRUZ MARTINEZ CNM Re04/04/25 Status: DEP REF Location: [facility] Disch: ----- ------- SPEC : [id number] RECD: 04/05/25 STATUS: IRMA WOLFF NUM: [id number] ADRIAN: 04/04/25 [facility] DR: JOSE CRUZ MARTINEZ CNM ENTERED: 04/05/25 [...] will be performed at [facility] (CLIA #[id number]), [address] [place] [address]. Testing for HPV was performed using the [...] detected. All professional services are performed by [facility] ([address] [place] [address], [place] [address]; ; CLIA #[id number]). The PAP Test is a screening procedure [...] END OF REPORT us Jose Cruz Martinez [facility] LAB CYTOLOGY ORDERABLES F inal Result [facility] [address] [place] [address] [phone] * (ABNORMAL) Bacterial Vaginosis (03/30/2025 3:00 PM EDT) TRICHOMONAS VAGINALIS DETECTION BY PCR NOT DETECTED Not Detect [facility] BACTERIAL VAGINOSIS DETECTION BY PCR POSITIVE(A) Negative [facility] Comment:The BV organism targ ets of [...] GROUP DETECTION BY PCR DETECTED(A) Not Detect [facility] Ivette glab krusei PCR NOT DETECTED Not Detect [facility] Swab Vaginal structure / Unknown 03/30/2025 3:00 PM EDT 03/30/2025 6:18 PM EDT Jennifer Jason MD LAB MICROBIOLOGY - GE NERAL ORDERABLES Final Result Performing Organization Address City/[facility]/ZIP Co de Phone Number [facility] [address] [place] [address] [phone] * HEPATITIS C AB W/REFL TO HCV RNA, QN, PCR (02/28/2022 10:12 AM EDT) HEPATITIS C ANTIBODY NON-REACT DHRUV NON-REACT DHRUV [facility] INDEX 0.16 <1.00 [facility] Comment: HCV antibody was non-reactive. There is no laboratory evidence of HCV infection. In most cases, no further action is required. However, if recent HCV exposure is suspected, a test for HCV RNA (test code 49851) is suggested. For additional information please refer to http://education.ViewRay/faq/VNL42x5 (This link is being provided for informational/ educational purposes only.) 02/28/2022 10:1 2 AM EDT Jennifer Jason MD HISTORICAL/NON ORDERA BLE LABS Final Result Performing Organization Address City/[facility]/ZIP Co de Phone Number [facility] [address] * HIV 1/2 ANTIGEN/ANTIBODY,FOURTH GENERATION W/RFL (02/28/2022 10:12 AM EDT) HIV-1/2 ANTIGEN AND ANTIBODIES, 4TH GENERATION W/ REFLEX NON-REACT DHRUV NON-REACT DHRUV [facility] Comment: HIV-1 antigen and HIV-1/HIV-2 [...] purpose. For additional information please refer to http://WeGoOut.ViewRay/faq/DGT732 (This link is being provided for informational/ educational purposes only.) The performance of this assay has not been clinically validated in patients less than 2 years old. 02/28/2022 10:1 2 AM EDT us Jennifer Jason MD LAB BLOOD ORDERABLES Final Result [facility] [address] * (ABNORMAL) LIPID PANEL, STANDARD (02/28/2022 10:12 [...] factors. LDL-C is now calculated using the Darrin-Darline calculation, which is a validated novel method providing better accuracy than the Friedewald equation in the estimation of LDL-C. Darrin CARL et al. JAMILA. 2013;310(19): 6981-0179 (http://education.Socowave.Boxee/faq/BJY257) Non-HDL Cholesterol 125 <130 mg/dL (calc) [facility] Comment: For patients with diabetes plus 1 major ASCVD risk factor, treating to a non-HDL-C goal of <100 mg/dL (LDL-C of <70 mg/dL) is considered a therapeutic option. Triglycerides 71 <150 mg/dL [facility] 02/28/2022 10:1 2 AM EDT us Jennifer Jason MD LAB BLOOD ORDERABLES Final Result [facility] [address] from Last 3 Months or Most Recently Relevant to Health Maintenance Insurance Care Teams Dry Press Operator Helper Relationship Specialty Start Date End Date Jennifer Garay MD [address] [place] [phone] PCP - General Family Medicine 02/28/22
--- OUTSIDE RECORDS SUMMARY | 2025-06-13 16:43 | XMS_ITS | Encounter Summary ---
Author Organization [employer] Address [address] [place] [address] Care Team Providers Care Trouble Shooting Mechanic Name Role Phone Jennifer Garay MD Primary Care Provide r Encounter Details Date Type Department Care Team (Late st Contact Info) Description 06/13/[address] [facility] [address] [place], [place] [phone] Jennifer Garay MD [address] [place] [address] Social History Tobacco Use Types Packs/Day Years [...] 07/13/2025 9:00 AM EDT Office Visit [facility] [address] [place] [address] TarkaAudelia, OD [address] [place] [address] documented as of this encounter Procedures Procedure Name Priority Date/Time Associated Diagnosis Comments BI US BREAST LIMITED BILATERAL Routine 06/13/2025 2:42 PM EDT BI MAMMOGRAM DIAGNOSTIC TOMOSYNTHESIS ADDED VIEW BILATERAL Routine 06/13/2025 1:45 PM EDT documented in this encounter Results * BI US Breast Limited Bilateral (06/13/2025 2:42 PM EDT) Anatomical Region Laterality Modality Breast Bilateral Ultrasound 06/13/2025 2:42 PM EDT Narrative 06/13/2025 3:25 PM EDT [facility] [address] [place] [address] Ultrasound Report Signed Patient: Delia Mays MR#: [id number] : 1975 Acct:[id number] Age/Sex: 49 / F ADM Date: 06/13/25 Loc: HO.MAMMO Attending Dr: Jennifer Jason MD Ordering Physician: Jennifer Garay MD Date of Service: 06/13/25 Procedure(s): US breast BI limited mamm only Accession Number(s): [id number] cc: Jennifer Garay MD Reason for Exam: [...] 06/13/25 1522 DD/ 1442 TD/TT: 06/13/25 1451 Technician [employer]ine Cable Equipment: Procedure Note Donotuseinterpreter, Image - 06/13/2025 [facility] [address] [place] [address] Ultrasound Report Signed Patient: Nicki Mays#: M [id number] : 1975Acct:[id number] Age/Sex: 49 / FADM Date: 06/13/25 Loc: HO.MAMMO Attending Dr: Jennifer Jason MD Ordering Physician: Jennifer Garay MD Date of Service: 06/13/25 Procedure(s): US breast BI limited mamm only Accession Number(s): [id number] cc: Jennifer Garay MD Reason for Exam: [...] 06/13/25 1522 DD/ 1442 TD/TT: 06/13/25 1451 Technician [employer] Equipment: Jennifer Jason MD IMG US PROCEDURES Fin al Result * BI Mammogram Diagnostic Tomosynthesis added bilateral (06/13/2025 1:45 PM EDT) Anatomical Region Laterality Modality Breast Left Mammography 06/13/2025 1:45 PM EDT Narrative 06/13/2025 3:25 PM EDT [facility] [address] [place] [address] Mammography Report Signed Patient: Delia Mays MR#: [id number] : 1975 Acct:[id number] Age/Sex: 49 / F ADM Date: 06/13/25 Loc: HO.MAMMO Attending Dr: Jennifer Jason MD Ordering Physician: Jennifer Garay MD Results: 4Suspicious Finding Date of Service: 06/13/25 Follow Up: Biopsy Recommend ed Procedure(s): MM tomosynthesis added view BI Accession Number(s): [id number] cc: Jennifer Garay MD Reason For Exam: [...] 06/13/25 1522 DD/ 1345 TD/TT: 06/13/25 1405 Technician Submarine Cable Equipment: Procedure Note Donotuseinterpreter, Image - 06/13/2025 [facility] [address] [place] [address] Mammography Report Signed Patient: Nicki Mays#: M [id number] : 1975Acct:[id number] Age/Sex: 49 / FADM Date: 06/13/25 Loc: HO.MAMMO Attending Dr: Jennifer Jason MD Ordering Physician: Jennifer Garay MDResults: 4Suspicious Finding Date of Service: 06/13/25Follow Up: Biopsy Recommend ed Procedure(s): MM tomosynthesis added view BI Accession Number(s): [id number] cc: Jennifer Garay MD Reason For Exam: [...] 06/13/25 1522 DD/ 1345 TD/TT: 06/13/25 1405 Technician [employer]ine [employer] Equipment: Jennifer Jason MD IMG BI PROCEDURES Fin al Result documented in this encounter Visit Diagnoses Not on filedocumented in this encounter Additional Health Concerns Assessment Noted Time PHQ-9 Depression Total Score: 15 025 2:31 PM EDT documented as of this encounter Care Teams Trouble Shooting Mechanic Relationship Specialty Start Date End Date Jennifer Garay MD [address] [place] [phone] PCP - General Family Medicine 02/28/22 documented as of this encounter
== END 2025-06-13 13:37 | disposition home or self-care (01) ==
LOC: HO.MAMMO 13:36
PROVIDERS: PCP Internal Medicine; Visit Provider Internal Medicine
DX: N64.89 Other specified disorders of breast (principal)
CPT/HCPCS: 76642; 77062; 77066

== ENCOUNTER → 2025-06-13 14:00 | Outpatient (BNV) | payer OTHER, SELFPAY | PROVIDERS: PCP Internal Medicine; Visit Provider Radiology Body Imaging | DX: N63.15 Unspecified lump in the right breast, overlapping quadrants (principal); N60.12 Diffuse cystic mastopathy of left breast | CPT/HCPCS: 76642; 77062; 77066 ==

== ENCOUNTER 2025-06-22 08:15 | Outpatient (AMB) | payer OTHER, SELFPAY ==
--- OUTSIDE RECORDS SUMMARY | 2025-06-22 08:27 | XMS_ITS | Patient Health Record ---
Author Organization [facility] Address 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
--- OUTSIDE RECORDS SUMMARY | 2025-06-22 08:27 | XMS_ITS | Clinical Summary ---
Author Organization [employer] Address [address] [facility] [address] [place] [address] Care Team Providers Care Psychotherapist Name Role Phone Jennifer Garay MD Primary [...] done today I will refer patient to [facility] Patient declines for now medications she will consider them on next appointment Trigger middle finger of right hand 01/21/2024 Assessment & Plan (01/21/2024 10:48 AM EDT): Referral to hand specialist Mabeldeolum externum of right upper eyelid Assessment & Plan (01/08/2024 2:05 PM EDT): -provided reassurance -encouraged frequent warm compresses -tx with erythromycin ointment -advised contact [facility] if sx do not resolve Right wrist pain 12/15/2023 Assessment & Plan (01/25/2025 6:26 AM EDT): - Likely carpal tunnel syndrome. Continue using brace. Will send gabapentin. Pt is unable to use Ibuprofen. - Evaluate with nerve conduction test. Patient requests it to be done at [facility]. - Will refer to ortho. Patient lives in [place] and works in [place], and prefers specialists closer to her home [...] recurrent major depressive disorder, without psychotic features (CMS/HCC) 01/20/2023 Assessment & Plan (03/30/2025 3:44 PM [...] intervention , Patient to reach out to [facility] team as needed, Patient to engage in OP therapy , and Patient to reach out to [facility] as needed Assessment & Plan (01/21/2024 10:49 AM EDT): Do not miss appointment with therapist hopefully she will be put on waiting list for psychiatrist as well Counseling done today Assessment & Plan (12/15/2023 11:39 AM EDT): Counseling done [facility] referral Encounters * This document contains information received from the source organization and may not represent a complete record from that organization. Date Type Department Care Team Description 06/13/2025 Orders Only [facility] [address] [place] [phone] Jennifer Garay MD 05/02/2025 3:30 PM EDT Clinical Support [facility] [address] [place] [phone] Ellen José RN Encounter for immunization 05/02/2025 Travel 04/10/2025 Results Follow-Up [address] [address] Jose Cruz Martinez CNM Pap Smear 04/04/2025 9:30 AM EDT Procedure Visit [address] [place] [address] Jose Cruz Martinez CNM Cervical cancer screening (Primary Dx); Screening examination for venereal disease; Abnormal uterine bleeding (AUB); Family history of breast cancer in sister; Foreign body in vagina, initial encounter 04/04/2025 Orders Only [address] [address] Jose Cruz Martinez CNM 04/04/2025 Travel 04/03/[address] [address] Jose Cruz Martinez CNM chart prep 03/31/2025 Results Follow-Up [address] [address] Jennifer Garay MD Bacterial Vaginosis 03/30/2025 2:45 PM EDT Office Visit [address] [address] Jennifer Garay MD Cigarette smoker (Primary Dx); Encounter for preventive care; Vaginal discharge; EMMA (generalized anxiety disorder); Severe episode of recurrent major depressive disorder, without psychotic features (CMS/HCC); Colon cancer screening; Encounter for screening mammogram for malignant neoplasm of breast; Encounter for immunization 03/30/[address] [address] Jennifer Garay MD MAMMO FAX 03/30/2025 Travel 03/29/[address] [address] Jennifer Garay MD Chart prep from Last 3 Months Immunizations Immunization Administration [...] Description 07/13/2025 9:00 AM EDT Office Visit [facility] [address] [place], [place] [phone] Audelia Deleon, OD [address] [place] [address] Health Maintenance Due Date Last Done Comments [...] Dental X-Ray: [facility] 08/06/2024 08/05/2023 COVID-19 Vaccine (4 - 2024-2 6 season) 2025 09/30/2021, 04/22/2021, 03/17/2021 Influenza Vaccine (#1) 2025 Diagnostic Breast Imaging 07/13/2025 06/13/2025 Depression Monitoring 09/30/2025 03/30/2025 , 03/30/2025 SDOH [...] PM EDT Narrative 06/13/2025 3:25 PM EDT [facility] [address] [place] [address] Ultrasound Report Signed Patient: Delia Mays MR#: [id number] : 1975 Acct:[id number] Age/Sex: 49 / F ADM Date: 06/13/25 Loc: HO.MAMMO Attending Dr: Jennifer Jason MD Ordering Physician: Jennifer Garay MD Date of Service: 06/13/25 Procedure(s): US breast BI limited mamm only Accession Number(s): [id number] cc: Jennifer Garay MD Reason for Exam: [...] 06/13/25 1522 DD/ 1442 TD/TT: 06/13/25 1451 Vapor Coater: Procedure Note Donotuseinterpreter, Image - 06/13/2025 [place] [facility] [address] [place] [address] Ultrasound Report Signed Patient: Nicki Mays#: M [id number] : 1975Acct:[id number] Age/Sex: 49 / FADM Date: 06/13/25 Loc: HO.MAMMO Attending Dr: Jennifer Jason MD Ordering Physician: Jennifer Garay MD Date of Service: 06/13/25 Procedure(s): US breast BI limited mamm only Accession Number(s): [id number] cc: Jennifer Garay MD Reason for Exam: [...] 06/13/25 1522 DD/ 1442 TD/TT: 06/13/25 1451 Vapor Coater: us Jennifer Jason MD IMG US PROCEDURES Fin al Result * BI Mammogram Diagnostic Tomosynthesis added bilateral (06/13/2025 1:45 PM EDT) Anatomical Region Laterality Modality Breast Left Mammography 06/13/2025 1:45 PM EDT Narrative 06/13/2025 3:25 PM EDT [facility] [address] [place] [address] Mammography Report Signed Patient: Delia Mays MR#: [id number] : 1975 Acct:[id number] Age/Sex: 49 / F ADM Date: 06/13/25 Loc: HO.MAMMO Attending Dr: Jennifer Jason MD Ordering Physician: Jennifer Garay MD Results: 4Suspicious Finding Date of Service: 06/13/25 Follow Up: Biopsy Recommend ed Procedure(s): MM tomosynthesis added view BI Accession Number(s): [id number] cc: Jennifer Garay MD Reason For Exam: [...] 06/13/25 1522 DD/ 1345 TD/TT: 06/13/25 1405 Vapor Coater: Procedure Note Donotuseinterpreter, Image - 06/13/2025 [facility] [address] [place] [address] Mammography Report Signed Patient: Nicki Mays#: M [id number] : 1975Acct:[id number] Age/Sex: 49 / FADM Date: 06/13/25 Loc: HO.MAMMO Attending Dr: Jennifer Jason MD Ordering Physician: Jennifer Garay MDResults: 4Suspicious Finding Date of Service: 06/13/25Follow Up: Biopsy Recommend ed Procedure(s): MM tomosynthesis added view BI Accession Number(s): [id number] cc: Jennifer Garay MD Reason For Exam: [...] 06/13/25 1522 DD/ 1345 TD/TT: 06/13/25 1405 Vapor Coater: Jennifer Jason MD IMG BI PROCEDURES Fin al Result * BI Mammogram Screening Tomosynthesis Bilateral (05/11/2025 4:25 PM EDT) Anatomical Region Laterality Modality Breast Bilateral Mammography 05/11/2025 4:25 PM EDT Narrative 05/16/2025 9:10 AM EDT [facility] [address] [place] [address] [place] [address] Mammography Report Signed Patient: Delia Myas MR#: [id number] : 1975 Acct:[id number] Age/Sex: 49 / F ADM Date: 05/11/25 Loc: HO.MAMMO Attending Dr: Jennifer Jason MD Ordering Physician: Jennifer Garay MD Results: 0Incomplete: Needs Additional Imaging Evaluation Date of Service: 05/11/25 Follow Up: Additional Imagi ng Procedure(s): MM tomosynthesis screening BI Accession Number(s): [id number] cc: Jennifer Garay MD EXAMINATION: MM SCREENING [...] 05/16/25 0907 DD/ 1625 TD/TT: 05/11/25 1642 Vapor Coater: Procedure Note Donotuseinterpreter, Image - 05/16/2025 [facility] [address] [place], [place] [address] Mammography Report Signed Patient: Nicki Mays#: M [id number] : 1975Acct:[id number] Age/Sex: 49 / FADM Date: 05/11/25 Loc: HO.MAMMO Attending Dr: Jennifer Jason MD Ordering Physician: Jennifer Garay MD Results: 0Incomplete: Needs Additional Imaging Evaluation Date of Service: 05/11/25Follow Up: Additional Imagi ng Procedure(s): MM tomosynthesis screening BI Accession Number(s): [id number] cc: Jennifer Garay MD EXAMINATION: MM SCREENING [...] 05/16/25 0907 DD/ 1625 TD/TT: 05/11/25 1642 Vapor Coater: us Jennifer Jason MD IMG BI PROCEDURES Fin al Result * STI testing add on (NG, CT, Trich) (04/04/2025 9:48 AM EDT) Trichomonas (NAAT) NOT DETECTED NOT DETECTED [facility] Comment:The analytical perfo rmance characteristics of thisassay have been determined by [facility]. Themodifications have not been cleared or approved bythe FDA. This assay has been validated pursuant to theIA regulations and is used for clinical purposes.For additional information, please refer tohttp://education.[facility]/faq/Trichomonastma(This link is being provided for information/educational purposes only.)THIS TEST WAS PERFORMED AT:[facility] [place] [phone] ARNOLD MD CTNG Ref Lab NOT DETECTED NOT DETECTED [facility] NG Ref Lab NOT DETECTED NOT DETECTED [facility] ThinPrep vial Cervix uteri structure / Unknown 04/04/2025 9:48 AM EDT 04/05/2025 8:04 AM EDT Narrative [facility] - 04/06/2025 9:58 PM EDT Collection Date: [id number] by: NNAMDI Vu: Cervix us Jose Cruz Martinez CN LAB CYTOLOGY ORDERABLES F inal Result [facility] [address] [place] [address] [phone] * HPV DNA, Low/High Risk (04/04/2025 9:48 AM EDT) HPV High Risk Negative Negative [facility] HPV Genotype 16 Negative Negative [facility] HPV Genotype 18 Negative Negative [facility] Comment:HPV testing performe d at [facility] (CLIA#[id number]), [address] [place] [phone].Testing for HPV was performed using the [employer] BENNETT 6800system. The presence of HPV in [...] Cruz Martinez CNM LAB BLOOD ORDERABLES Oliva oleary Result [facility] [address] [place] [phone] * Pap Smear (04/04/2025 9:48 AM EDT) Swab Cervix uteri structure / Unknown 04/04/2025 9:48 AM EDT 04/05/2025 8:04 AM EDT Narrative [facility] - 04/07/2025 11:33 AM EDT ----- ------- Name: Gifford Willy,Delia Age/Sex: 49/F : 1975 Unit#: [id number] Attend Dr: JOSE CRUZ MARTINEZ CNM Re04/04/25 Status: DEP REF Location: [facility]OHHCLNP Disch: ----- ------- SPEC : [id number] RECD: 04/05/25 STATUS: IRMA WOLFF NUM: [id number] ADRIAN: 04/04/[address] [facility] [address]: JOSE CRUZ MARTINEZ CNM ENTERED: [...] and HPV testing will be performed at [facility] (CLIA #[id number]), [address] [place] [address]. Testing for HPV was performed using the Opendisc BENNETT 6800 system. The presence of HPV [...] detected. All professional services are performed by [facility] ([address] [place] [phone]; ; CLIA #[id number]). The PAP Test is a screening procedure with the inherent possibility of both false negative and false positive results. Results should be interpreted in the context of historic and current clinical findings. Reliability of the PAP Test is enhanced by performing the test on a regular repetitive basis. ----- ------- Signed (signature on file) Deng WaltersREBECCA mora (ASCP) 04/07/25 1133 ----- ------- END OF REPORT us Jose Cruz Martinez [facility] LAB CYTOLOGY ORDERABLES F inal Result [facility] [address] [place] [phone] * (ABNORMAL) Bacterial Vaginosis (03/30/2025 3:00 PM EDT) TRICHOMONAS VAGINALIS DETECTION BY PCR NOT DETECTED Not Detect [facility] BACTERIAL VAGINOSIS DETECTION BY PCR POSITIVE(A) Negative [facility] Comment:The BV organism targ ets [...] GROUP DETECTION BY PCR DETECTED(A) Not Detect [facility] Ivette glab krusei PCR NOT DETECTED Not Detect [facility] Swab Vaginal structure / Unknown 03/30/2025 3:00 PM EDT 03/30/2025 6:18 PM EDT Jennifer Jason MD LAB MICROBIOLOGY - GE NERAL ORDERABLES Final Result [facility] [address] [place] [address] [phone] * HEPATITIS C AB W/REFL TO HCV RNA, QN, PCR (02/28/2022 10:12 AM EDT) HEPATITIS C ANTIBODY NON-REACT DHRUV NON-REACT DHRUV [facility] INDEX 0.16 <1.00 [facility] Comment: HCV antibody was non-reactive. There is no laboratory evidence of HCV infection. In most cases, no further action is required. However, if recent HCV exposure is suspected, a test for HCV RNA (test code 82639) is suggested. For additional information please refer to http://[employer].com.[facility] [facility]/faq/THM01g1 (This link is being provided for informational/ educational purposes only.) 02/28/2022 10:1 2 AM EDT Jennifer Jason MD HISTORICAL/NON ORDERA BLE LABS Final Result Performing Organization Address [facility] Co de Phone Number [facility] [address] * HIV 1/2 ANTIGEN/ANTIBODY,FOURTH GENERATION W/RFL [...] purpose. For additional information please refer to http://education.[facility] [facility]/faq/SRU682 (This link is being provided for informational/ educational purposes only.) The performance of this assay has not been clinically validated in patients less than 2 years old. 02/28/2022 10:1 2 AM EDT Jennifer Jason MD LAB BLOOD ORDERABLES Final Result Performing Organization Address [facility] de Phone Number [facility] [address] * (ABNORMAL) LIPID PANEL, STANDARD (02/28/2022 [...] equation in the estimation of LDL-C. Darrin SS et al. JAMILA. 2013;310(19): 3038-9444 (http://education.[employer]/faq/CMD572) Non-HDL Cholesterol 125 <130 mg/dL (calc) [facility] Comment: For patients with diabetes plus 1 major ASCVD risk factor, treating to a non-HDL-C goal of <100 mg/dL (LDL-C of <70 mg/dL) is considered a therapeutic option. Triglycerides 71 <150 mg/dL [facility] 02/28/2022 10:1 2 AM EDT Jennifer Jason MD LAB BLOOD ORDERABLES Final Result Performing Organization Address [facility] Co de Phone Number [facility] [address] from Last 3 Months or Most Recently Relevant to Health Maintenance Insurance Care Teams Psychotherapist Relationship Specialty Start Date End Date Jennifer Garay MD [address] [place] [phone] PCP - General Family Medicine 02/28/22
--- OUTSIDE RECORDS SUMMARY | 2025-06-22 08:27 | XMS_ITS | Clinical Summary ---
Author Organization [address] [place] [address] Address [address] [place] [address] Phone Care Team Providers Care Technical Delivery Manager Name Role Phone Jennifer Garay MD Primary [...] Department Care Team Description 04/10/2025 Telephone [address] [phone] Lesley Good MD 03/31/2025 Telephone [address]astroenter[address] [phone] Lesley Good MD from Last [...] Info) Description 07/10/2025 1:00 PM EDT Appointment [facility] [address] [place] [address] Lesley Good MD [address] [facility] [address] [place] [address] Health Maintenance Due Date Last Done Comments Breast Cancer Screening 1975 Colorectal Cancer Screening: Colonoscopy 1975 DTaP,Tdap,and Td Vaccines (1 - Tdap) 1996 Hepatitis B Vaccines (1 of 3 - 19+ 3-dose series) 1996 Cervical Cancer Screening: P ap Smear 1998 HIV Screening 08/20/2022 Hepatitis C Screening 08/20/2022 [...] on patient's age to complete this topic Goals Goal Patient Goal Type Associated Problems Recent Progress Patient-Stated? Author Autogenera jada Goal Care Plan Autogenerated Problem No Leonora Wallis Additional Health Concerns Active Problems Noted Date Diagnosed Date Autogenerated Problem 06/19/2025 Insurance [facility] [address] [place] [address] Care Teams Technical Delivery Manager Relationship Specialty Start Date End Date Jennifer Garay MD [address] [place] [phone] PCP - General Internal Medicine 03/31/25
--- NOTE | 2025-06-22 08:40 | MHC.OFFVIS ---
Vital Signs 06/22/25 08:45 Height 5 ft 4 in Weight 153 lb 15.992 oz BMI 26.4 Intake Visit Reasons: R brst US BX 9 o'clock Intake Note: This patient presents for consultation for right breast ultrasound guided biopsy for 9 o'clock density. Pt c/o; reports left breast pain, no change in size or shape, no redness. Bx booked 06/22/2025 @0900 Seafood Specialist Required: No Accompanied by: Life Partner Allergies gluten (GLUTEN) Allergy (Intermediate, Verified 06/22/25 08:46) Vomiting wheat (WHEAT) Adverse Reaction (Intermediate, Verified 06/22/25 08:46) Vomiting Medication List - Last Reconciled 06/22/25 by Ced Baer MD ascorbic acid (vitamin C) (Vitamin C) 500 mg PO Q OTHER DAY dicyclomine 20 mg PO BID PRN dicyclomine 20 mg PO BID docusate sodium 100 mg PO BID ergocalciferol (vitamin D2) 1,250 mcg PO QWEEK ferrous gluconate 324 mg PO Q OTHER DAY hydroxyzine HCl 25 mg PO BID PRN mirtazapine 15 mg PO BEDTIME ondansetron 4 mg PO Q8H PRN ondansetron 4 mg PO Q8H PRN prednisone 20 mg orally, Take 3 tablets for 5 days THEN; Take 2 tablets for 4 days THEN; Take 1 tablet for 3 days 12 days HPI HPI R brst US BX 9 o'clock: Details: 49 year old female referred for a right breast mass seen on imaging studies She underwent a screening mammogram last April, and was brought back for plastic imaging with ultrasound and mammogram because of a right breast mass. Targeted ultrasound and mammogram done last week shows a solid mass at the 9 o'clock position, 7 cm from the nipple, with other small septated cysts. In view of the presence of this mass at the 9 o'clock position, she was recommended to undergo an ultrasound biopsy. A six-month follow up mammogram was also recommended because of the multiple septated cyst on the right breast. She denies feeling any mass. Her menarche was at the age of 14. Her 1st was at age of 19. She had 4 pregnancies. She still has her periods. She says her sister was diagnosed to have breast cancer in her late 30s. [facility] Medical History (Updated 06/22/25 @ 08:58 by Ced Baer MD) Family history of breast cancer Breast mass, right History of COVID-19 Prolapsed hemorrhoids Surgical History Hx of tubal ligation Family History Brother Throat cancer Maternal Grandfather Cancer Sister Breast cancer Social History Alcohol intake: current Alcohol intake frequency: holidays/special occasions only Patient Tobacco Use Status: Current someday Tobacco user Substance Use Type: Marijuana Female Reproductive History Menstrual Age of Menarche: 14 Date of last menstrual period: 06/27/25 Total pregnancies: 4 Review of Systems Const Denies chills and Denies fever(s) Card Denies chest pain, Denies dyspnea and Denies dyspnea on exertion Resp Denies cough, Denies dyspnea and Denies dyspnea on exertion GI Denies hematochezia and Denies change in bowel habits Denies hematuria Musc Denies back pain and Denies limited range of motion Neuro Denies focal weakness and Denies convulsions Psych Denies depression and Denies mood swings Physical Exam Vital Signs: BMI result Body Mass Index 26.4 Const General: comfortable and no acute distress Orientation/consciousness: patient oriented x3 Neck Neck: Yes no lymphadenopathy Chest Other: No palpable breast masses, no axillary lymphadenopathy, no nipple or skin changes Resp Auscultation: clear to auscultation bilaterally Cardio Rhythm: regular rhythm GI Palpation (GI): Soft to palpation, nontender and no guarding Neuro General: patient oriented x3 Assessment & Plan Assessment & Plan (1) Breast mass, right: Code(s): N63.10 - Unspecified lump in the right breast, unspecified quadrant Category: Medical Plan: She had this solid mass at the 9 o'clock position and an ultrasound biopsy was recommended. I explained to her the technique of this procedure. I will see her again in the office next week to discuss the path report. (2) Family history of breast cancer: Code(s): Z80.3 - Family history of malignant neoplasm of breast Category: Medical Plan: She d says that her sister was diagnosed to have breast cancer in her late 30s. The patient therefore qualifies for genetic testing I explained the option of genetic testing with [facility]. I explained to her the possible implications of this test to herself and her family She says that she does not want to proceed with genetic testing at this time. Orders: Orders US breast ndl core biopsy RT Today N63.10 - Unspecified lump in the right breast, unspecified quadrant Coding Level of Care Code New Pt Level 4 (44926) Diagnoses Breast mass, right N63.10 Family history of breast cancer Z80.3
[2025-06-22 08:45] VITALS: BMI 26.4
== END 2025-06-22 08:59 | disposition home or self-care (01) ==
LOC: HO.HGS 08:15
PROVIDERS: PCP Internal Medicine; Visit Provider Surgery
DX: N63.10 Unspecified lump in the right breast, unspecified quadrant (principal); Z80.3 Family history of malignant neoplasm of breast
CPT/HCPCS: 99204

== ENCOUNTER → 2025-06-22 09:00 | Outpatient (BNV) | payer OTHER, SELFPAY | PROVIDERS: PCP Internal Medicine; Visit Provider Internal Medicine | DX: N63.11 Unspecified lump in the right breast, upper outer quadrant (principal) | CPT/HCPCS: 77061; 77065 ==

== ENCOUNTER 2025-06-22 09:02 | Outpatient (REF) | payer OTHER, SELFPAY ==
--- NOTE | ~2025-06-22 | MM_ITS ---
PROCEDURE: ULTRASOUND-GUIDED RIGHT BREAST BIOPSY CLINICAL INFORMATION: Solid mass at 9:00 in the right breast. Additional masses/complicated cyst for which six-month follow-up was recommended. COMPARISON: Priors on PACS. TECHNIQUE: The details of the procedure, as well as the risks, benefits, and alternatives to the procedure were explained to the patient in detail and all of her questions were answered, after which, written informed consent was obtained. PROCEDURE: Prior to the procedure, sonography revealed hypoechoic oval solid mass at 9:00 in the right breast. A time-out was performed, the lesion intended for biopsy was targeted and the skin of the right breast was then prepped and draped in the usual sterile fashion. Using sonographic guidance, sterile technique, and 1% lidocaine without epinephrine for local anesthesia, a total of 5 cores were obtained through the targeted area with a 14-gauge biopsy device. At the completion of tissue sampling, a single butterfly metallic clip was deposited at the biopsy site. An appropriate sample was obtained. The postprocedure 2-view direct digital mammogram reveals satisfactory positioning of the biopsy clip. The patient tolerated the procedure well and, after assuring adequate hemostasis, was discharged in good condition after reviewing postbiopsy breast care instructions. Final pathology results are pending. MM/MM tomosynthesis diagnostic RT IMPRESSION: 1. Uncomplicated sonographically-guided core biopsy of the right breast. The 2-view direct digital postprocedure mammogram reveals satisfactory positioning of the biopsy clip. 2. Final pathology results are pending. A separate report with final recommendations will be issued once these results are made available. 3. Patient has additional bilateral circumscribed solid masses versus complicated cyst for which six-month follow-up bilateral ultrasound is recommended. Electronically signed by: Demetria Escalante DO 06/22/2025 10:34 AM EDT
[2025-06-22] MEDS: Lidocaine HCl 1 % 20 ML VIAL 9 ML SUBCUT (10:00)
== END 2025-06-22 09:03 | disposition home or self-care (01) ==
LOC: HO.MAMMO 09:02
PROVIDERS: PCP Internal Medicine; Visit Provider Surgery
DX: N63.11 Unspecified lump in the right breast, upper outer quadrant (principal); Z80.3 Family history of malignant neoplasm of breast; Z12.31 Encounter for screening mammogram for malignant neoplasm of breast
CPT/HCPCS: 19083; 77061; 77065; 88305; A4648; J2003

== ENCOUNTER 2025-06-28 15:04 | Outpatient (AMB) | payer OTHER, SELFPAY ==
--- NOTE | 2025-06-28 15:05 | A.OFFVIS_ITS ---
Vital Signs 06/28/25 15:09 Height 5 ft 4 in Weight 153 lb 15.992 oz BMI 26.4 Intake Visit Reasons: s/p R brst US BX 9 o'clock 06/22 Intake Note: Patient presents to discuss breast biopsy results. Pt c/o; no complaints. Breast Bx done 06/22/2025 Lav Crewman Required: No Accompanied by: Self / Same As Patient Allergies gluten (GLUTEN) Allergy (Intermediate, Verified 06/28/25 15:09) Vomiting wheat (WHEAT) Adverse Reaction (Intermediate, Verified 06/28/25 15:09) Vomiting Medication List - Last Reconciled 06/28/25 by Ced Baer MD ascorbic acid (vitamin C) (Vitamin C) 500 mg PO Q OTHER DAY dicyclomine 20 mg PO BID PRN dicyclomine 20 mg PO BID docusate sodium 100 mg PO BID ergocalciferol (vitamin D2) 1,250 mcg PO QWEEK ferrous gluconate 324 mg PO Q OTHER DAY hydroxyzine HCl 25 mg PO BID PRN mirtazapine 15 mg PO BEDTIME ondansetron 4 mg PO Q8H PRN ondansetron 4 mg PO Q8H PRN prednisone 20 mg orally, Take 3 tablets for 5 days THEN; Take 2 tablets for 4 days THEN; Take 1 tablet for 3 days 12 days HPI HPI s/p R brst US BX 9 o'clock 06/22: Details: She had undergone an ultrasound guided biopsy of a right breast mass last 06/22/2025. She tolerated the procedure well. She denies any significant hematoma on the area. She is here to discuss the path report. [facility] Medical History Family history of breast cancer Breast mass, right History of COVID-19 Prolapsed hemorrhoids Surgical History Hx of tubal ligation Family History Brother Throat cancer Maternal Grandfather Cancer Sister Breast cancer Social History Alcohol intake: current Alcohol intake frequency: holidays/special occasions only Patient Tobacco Use Status: Current someday Tobacco user Substance Use Type: Marijuana Female Reproductive History Menstrual Age of Menarche: 14 Review of Systems Const Denies chills and Denies fever(s) Card Denies chest pain at rest Resp Denies cough GI Denies abdominal pain Physical Exam Const General: comfortable and no acute distress Chest Other: No hematoma on the biopsy site, mild ecchymosis seen Resp Effort & Inspection: normal respiratory effort Cardio Rate: regular rate Assessment & Plan Assessment & Plan (1) Breast mass, right: Code(s): N63.10 - Unspecified lump in the right breast, unspecified quadrant Category: Medical Plan: Status post ultrasound-guided biopsy. Her path report shows fibroadenomatous changes without suggestion of any malignancy. I explained to her the benign nature of this pathology She is to continue with her regular screening mammograms. She can follow up on a p.r.n. basis. Her sister was diagnosed to have breast cancer at an early age but the patient has refused genetic testing. Coding Level of Care Code Est Pt Level 3 (93076) Diagnoses Breast mass, right N63.10
[2025-06-28 15:09] VITALS: BMI 26.4
== END 2025-06-28 15:10 | disposition home or self-care (01) ==
PROVIDERS: PCP Internal Medicine; Visit Provider Surgery
DX: N63.10 Unspecified lump in the right breast, unspecified quadrant (principal)
CPT/HCPCS: 99213